=== PATIENT | male | born 1940 | race Caucasian/White ===

== ENCOUNTER 2018-01-27 19:41 | Inpatient (IN) | payer MEDICARE ==
[2018-01-27 20:24] LABS: #Basophils 0.1 thou/uL (0.0-0.2); #Eosinphils 0.3 thou/uL (0.0-0.7); #Monocytes 1.3 thou/uL (0.11-0.59); #Neutrophils 5.6 thou/uL (1.40-6.50); %Basophils 0.8 % (0.0-1.0); %Eosinophils 3.1 % (0.0-10.0); %Lymphocytes 21.5 % (21.0-51.0); %Monocytes 13.5 % (0.0-10.0); %Neutrophils 61.1 % (42.0-75.0); Hemoglobin 13.2 g/dL (14.0-18.0); Mean Corpuscular Hemoglobin 30.9 pg (27.0-31.0); Mean Corpuscular Volume 90.9 fL (78.0-98.0); Mean Platelet Volume 6.6 fL (7.4-10.4); Platelet Count 214 thou/uL (130-400); RBC Distribution Width 12.9 % (11.5-14.5); Red Blood Cell (RBC) Count 4.26 mill/uL (4.70-6.10); White Blood Cell (WBC) Count 9.2 thou/uL (4.8-10.8)
[2018-01-27 20:43] LABS: ALT (SGPT) 17 U/L (8-55); AST (SGOT) 15 U/L (5-34); Albumin 3.3 g/dL (3.4-4.8); Alkaline Phosphatase 91 U/L (40-150); Anion Gap 9 mmol/L (10-20); BUN (Urea Nitrogen) 31 mg/dL (8.4-25.7); Bilirubin, Total 0.4 mg/dL (0.2-1.2); CK (CPK) 35 U/L (30-200); Calc. Creatinine Clearance 0 mL/min (70-130); Calcium 8.4 mg/dL (7.8-10.44); Carbon Dioxide 25 mmol/L (23-31); Chloride 107 mmol/L (98-107); Estimated GFR-MDRD 47; Glucose 110 mg/dL (83-110); Potassium 4.5 mmol/L (3.5-5.1); Protein, Total 6.3 g/dL (5.8-8.1); Sodium 136 mmol/L (136-145)
[2018-01-27 20:52] LABS: CKMB 1.5 ng/mL (0-6.6); Troponin I 0.044 ng/mL (< 0.028)
--- NOTE | 2018-01-27 20:54 | RAD ---
AP VIEW OF THE CHEST: 01/27/18 INDICATION: History of bilateral lower extremity weakness. COMPARISON: Prior exam dated 12/11/17. IMPRESSION: There is stable cardiomegaly and post CABG change. No acute abnormality is evident when compared to t he prior. POS: [facility]
[2018-01-27 22:53] LABS: Bilirubin Negative (Negative); Blood, Urine Negative (Negative); Clarity CLEAR (Clear); Glucose, Urine (Dipstick) Negative (Negative); Leukocyte Negative (Negative); Nitrite Negative (Negative); Protein, Urine (Dipstick) Negative (Neg-Trace); Specific Gravity, Urine 1.019 (1.002-1.036); Urobilinogen 0.2 mg/dL (0.2-1.0); pH, Urine 5.5 (5.0-9.0)
[2018-01-27 23:41] LABS: Troponin I 0.047 ng/mL (< 0.028)
[2018-01-27] MEDS ORDERED: Furosemide 40 MG/4 ML VIAL ONE (23:54)
[2018-01-28 02:41] LABS: Troponin I 0.074 ng/mL (< 0.028)
[2018-01-28] MEDS ORDERED: Ondansetron ODT 4 MG TAB SL PRN (02:48)
[2018-01-28] MEDS ORDERED: Ondansetron HCl/PF 4 MG/2 ML Vial IVP PRN ×2 (02:48→07:26)
[2018-01-28] MEDS ORDERED: Acetaminophen 325 MG TAB PO PRN ×2 (02:48→07:26)
[2018-01-28 03:20] VITALS: BMI 20.1
[2018-01-28] MEDS ORDERED: Mag-Al 1200 mg/1200 mg/30 ML UDCUP PO PRN (07:26)
[2018-01-28] MEDS ORDERED: Nitroglycerin 0.4 MG TAB (25 Tab Bottle) SL PRN (07:26)
[2018-01-28] MEDS ORDERED: Ondansetron ODT 4 MG TAB PO PRN (07:26)
[2018-01-28] MEDS ORDERED: Chloraseptic Spray 180 ml Bottle PO PRN (07:26)
[2018-01-28] MEDS ORDERED: Diabetic Tussin 200 MG/10 ML UDCUP PO PRN (07:26)
[2018-01-28] MEDS ORDERED: Loperamide HCl 2 MG CAP PO PRN (07:26)
[2018-01-28] MEDS ORDERED: Milk Of Magnesia 30 ML UDCUP PO PRN (07:26)
[2018-01-28] MEDS ORDERED: Senokot 8.6 MG TAB PO PRN (07:26)
[2018-01-28] MEDS ORDERED: hydrALAZINE 20 MG/ML VIAL SLOW IVP PRN (07:26)
[2018-01-28] MEDS ORDERED: Loratadine 10 MG TAB PO PRN (07:26)
[2018-01-28] MEDS ORDERED: Artificial Tears 18 DROP/0.9 ML EA EYE PRN (07:26)
[2018-01-28] MEDS ORDERED: Sodium Chloride 0.65% Nasal 44 ML BOT EA NARE PRN (07:26)
[2018-01-28] MEDS ORDERED: Zolpidem Tartrate 5 MG TAB PO PRN (07:26)
[2018-01-28] MEDS ORDERED: Eucerin (Mineral Oil/Petrolatum,White) 30 gm Jar TOP PRN (07:26)
[2018-01-28] MEDS ORDERED: Famotidine 20 MG TAB PO SCH (09:00)
[2018-01-28] MEDS ORDERED: Aspirin 325 MG TAB PO SCH (09:00)
[2018-01-28] MEDS: HYDROcodone/Acetaminophen 5/325 mg Tablet PO PRN ×3 (09:19→21:58)
[2018-01-28] MEDS: Enoxaparin Sodium 40 MG/0.4 ML SYRINGE SC SCH (09:22)
[2018-01-28] MEDS ORDERED: tiZANidine HCl 4 MG TAB PO PRN (13:42)
--- NOTE | 2018-01-28 13:58 | HP ---
PRIMARY CARE PHYSICIAN: Dr. Carter Salgado. REASON FOR ADMISSION: CHF, elevated troponin, acute generalized weakness. HISTORY OF PRESENT ILLNESS: A 77-year-old male who lives at assisted living department at [facility]. This morning, he was not able to stand up, he was feeling acutely weak. He was feeling exha usted and fatigued. He was not having any particular weakness on one or other side, but he was not a ble to hold himself. He was feeling so tired. He was not having any chest pain or shortness of cherie th, but he noticed that his lower extremity edema was getting worse. Patient was so weak at assisted living facility that it required wheelchair to transfer and subsequently he was brought to the emerg ency room for evaluation. He denies any fever. He denies any viral infection. He denies any constipation, diarrhea, melena, h ematochezia. He denies any abdominal pain. He denies any headache, palpitations, syncope. He denie s any trauma. In emergency room, patient was found with elevated troponin, elevated BNP and he has chronic kidney d isease stage 3. In the emergency room, he was treated with aspirin, Lasix, and subsequently he was a dmitted to telemetry floor. PAST MEDICAL HISTORY: Hypertension, dyslipidemia, benign enlargement of prostate, sleep apnea, gastr oesophageal reflux disease, history of pneumonia 2 weeks ago, chronic low back pain. PAST SURGICAL HISTORY: Prostate surgery, bilateral cataract surgery, CABG with heart valve replaceme nt, appendicectomy. PAST PSYCHIATRIC HISTORY: Anxiety and depression. SOCIAL HISTORY: Patient is originally from [place]. He is in our town for last few months. 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 He also is a former smoker. He quit smoking more than 10 yea rs ago. Currently, he lives at [facility] of [facility]. FAMILY HISTORY: No strong family history of premature coronary artery disease, stroke or cancer. ALLERGIES: No known drug allergy. CURRENT HOME MEDICATIONS: Aspirin 81 mg daily, Lipitor 80 mg p.o. at bedtime, calcium carbonate 500 mg p.o. b.i.d., Plavix 75 mg p.o. daily, Proscar 5 mg p.o. daily, gabapentin 300 mg twice daily and 6 00 mg p.o. at bedtime, metoprolol 25 mg p.o. b.i.d., Irvona 5 one tablet q.8 hourly p.r.n., MiraLax 17 grams p.o. daily, Protonix 20 mg p.o. daily, senna one tablet twice daily, Flomax 0.4 mg p.o. at bed time, tramadol 50 mg q.12 hours p.r.n., Zanaflex 4 mg q.8 hourly p.r.n. and Zoloft 25 mg p.o. daily. EMERGENCY ROOM COURSE: Patient is given aspirin and Lasix. REVIEW OF SYSTEMS: The following complete review of systems was negative, unless otherwise mentioned in the HPI or below: Constitutional: Weight loss or gain, ability to conduct usual activities. Skin: Rash, itching. Eyes: Double vision, pain. ENT/Mouth: Nose bleeding, neck stiffness, pain, tenderness. Cardiovascular: Palpitations, dyspnea on exertion, orthopnea. Respiratory: Shortness of breath, wheezing, cough, hemoptysis, fever or night sweats. Gastrointestinal: Poor appetite, abdominal pain, heartburn, nausea, vomiting, constipation, or diarr hea. Genitourinary: Urgency, frequency, dysuria, nocturia. Musculoskeletal: Pain, swelling. Neurologic/Psychiatric: Anxiety, depression. Allergy/Immunologic: Skin rash, bleeding tendency. Please see my HPI for pertinent positive and negative. All other review of systems reviewed and nega tive except as mentioned in the HPI. PHYSICAL EXAMINATION: VITAL SIGNS: Currently, blood pressure 130/52, pulse 59, respiratory rate 15, temperature 98.3, satu ration 95% on room air and weight 82.6 kilograms. GENERAL: Patient is currently alert, awake, no obvious acute distress. HEAD: Normocephalic, atraumatic. EYES: Pupils round, reactive to light. Extraocular muscle intact. ENT: Oropharynx within normal limits. Moist mucous membrane, no oral lesion, no pharyngeal erythema , no exudate. NECK: Supple, no JVD, no thyromegaly, no carotid bruit, no jugular venous distention. LUNGS: Clear to auscultation without any rhonchi or rales. CARDIAC: S1 and S2 appears regular, soft systolic murmur noted, no gallop, no rub. ABDOMEN: Soft, bowel sounds present, nontender, nondistended. No organomegaly, no mass, no suprapub ic tenderness. BACK: Examination unremarkable, no CVA tenderness. EXTREMITIES: Upper extremity passive movements of all joints are normal. Lower extremity; bilateral +2 pitting edema noted. No calf tenderness. Good distal pulsation. SKIN: No skin rash other than mild erythema noted in both lower extremities without any tenderness. NEUROLOGIC: Nonfocal examination. The patient is alert and oriented x3. Cranial nerves II-XII inta ct. Motor 5/5 in all four limbs. Sensation symmetrical. No cerebellar sign. PSYCHIATRIC: Normal affect. IMAGING DATA AND SIGNIFICANT LABORATORY DATA: 1. EKG showing normal sinus rhythm, right atrial enlargement, nonspecific ST-T changes. 2. Chest x-ray based on my review, cardiomegaly, slight left pleural effusion. 3. CBC: WBC 9.2, hemoglobin 13.2, platelet 214. 4. BMP: Sodium 136, potassium 4.5, BUN 31, creatinine 1.45, glucose 110, calcium 8.4, and lactic ac id 1.3. 5. LFT: AST 15, ALT 17, alkaline phosphatase 91, albumin 3.3, CK 35, CK-MB 1.5, troponin 0.044, BNP 428.3. Urinalysis normal. ASSESSMENT AND PLAN/IMPRESSION: 1. Acute generalized weakness; differential diagnosis, acute coronary syndrome/congestive heart fail ure/rule out infection. 2. Acute mild congestive heart failure exacerbation. Patient will be given Lasix 20 mg IV b.i.d. W e will monitor labs. Cardiac rehabilitation will be consulted. After verification of his home medic nicole, we will continue metoprolol tartrate 25 mg p.o. b.i.d. 3. Dyslipidemia. Check lipid profile tomorrow and continue Lipitor 80 mg p.o. at bedtime. 4. Coronary artery disease. Continue aspirin, Plavix, statin therapy and beta-moira therapy as pe r home dosage. 5. Chronic low back pain. Continue gabapentin, Zanaflex as per home dosage, Irvona on p.r.n. basis f or pain. 6. Gastroesophageal reflux disease. Continue Protonix 40 mg p.o. daily. 7. Benign enlargement of prostate. Continue Flomax and Proscar as per home dosage. 8. Anxiety and depression. Continue Zoloft 25 mg p.o. daily. 9. Deep venous thrombosis prophylaxis, Lovenox 40 mg subcu daily. 10. Gastrointestinal prophylaxis, Protonix 40 mg p.o. daily. CODE STATUS: The patient is FULL CODE. Patient's daughter is surrogate decision maker. Disposition plan based on clinical course. He will need PT, OT evaluation and [facility]. Disposition plan based on clinical course. We are expecting patien t's stay in hospital more than 2 midnights. Plan of care discussed with the patient. During this ad mission, we will also obtain echocardiography for diagnosis of CHF as well. Plan of care discussed w ith the patient's daughter on phone and updated about plan of care.
[2018-01-28] MEDS: Furosemide 20 MG/2 ML VIAL SLOW IVP SCH (14:54)
[2018-01-28] MEDS: Gabapentin 300 MG CAP PO SCH ×2 (16:26→21:59)
--- NOTE | 2018-01-28 20:42 | RAD ---
FRONTAL RADIOGRAPH CHEST 01/28/18 COMPARISON: 01/27/18. HISTORY: Cough. FINDINGS: Stable midline sternotomy wires and mediastinal clips. Stable interstitial prominence and pulmonary h yperinflation. No pneumothorax, pleural fluid, focal consolidation, or alveolar edema. IMPRESSION: No acute findings. POS: [facility]
[2018-01-28] MEDS: Senokot S 8.6-50 MG TAB PO SCH (21:56)
[2018-01-28] MEDS: Atorvastatin Calcium 40 MG TAB PO SCH (21:57)
[2018-01-28] MEDS: Metoprolol Tartrate 25 MG TAB PO SCH (21:58)
[2018-01-29] MEDS: HYDROcodone/Acetaminophen 5/325 mg Tablet PO PRN ×2 (05:26→18:44)
[2018-01-29] MEDS: Furosemide 20 MG/2 ML VIAL SLOW IVP SCH ×2 (05:27→16:13)
[2018-01-29 05:47] LABS: ALT (SGPT) 21 U/L (8-55); AST (SGOT) 17 U/L (5-34); Albumin 3.5 g/dL (3.4-4.8); Alkaline Phosphatase 97 U/L (40-150); Anion Gap 13 mmol/L (10-20); BUN (Urea Nitrogen) 29 mg/dL (8.4-25.7); Bilirubin, Total 0.5 mg/dL (0.2-1.2); Calc. Creatinine Clearance 46 mL/min (70-130); Calcium 9.1 mg/dL (7.8-10.44); Carbon Dioxide 24 mmol/L (23-31); Cardiac Risk 4.5 (Less than 4.5); Chloride 108 mmol/L (98-107); Cholesterol 148 mg/dl (< 200 Desired); Estimated GFR-MDRD 43; Globulin 3.4 g/dL (2.4-3.5); Glucose 82 mg/dL (83-110); HDL Cholesterol 33 mg/dL (>60 Neg Risk); LDL Cholesterol, Calculated 90 mg/dL; Potassium 4.3 mmol/L (3.5-5.1); Protein, Total 6.9 g/dL (5.8-8.1); Sodium 141 mmol/L (136-145); Triglycerides 127 mg/dL (Less than 150); Uric Acid 6.6 mg/dL (3.5-7.2)
[2018-01-29 06:05] LABS: Band 4 % (5-11); Eosinophils 5 % (0-10); Hemoglobin 14.3 g/dL (14.0-18.0); Lymphocytes 39 % (21-51); MDiff Complete? YES; Mean Corpuscular HGB CONC 33.4 g/dL (32.0-36.0); Mean Corpuscular Hemoglobin 30.8 pg (27.0-31.0); Mean Corpuscular Volume 92.4 fL (78.0-98.0); Mean Platelet Volume 7.1 fL (7.4-10.4); Monocytes 15 % (0-10); Neutrophil 36 % (42-75); PLT Morphology Comment Appears Adequate; Platelet Count 226 thou/uL (130-400); RBC Distribution Width 13.1 % (11.5-14.5); Red Blood Cell (RBC) Count 4.65 mill/uL (4.70-6.10); White Blood Cell (WBC) Count 8.2 thou/uL (4.8-10.8)
[2018-01-29] MEDS: Gabapentin 300 MG CAP PO SCH ×4 (09:37→21:48)
[2018-01-29] MEDS: Clopidogrel Bisulfate 75 MG TAB PO SCH (09:37)
[2018-01-29] MEDS: Tamsulosin HCl 0.4 MG CAP PO SCH (09:37)
[2018-01-29] MEDS: Finasteride 5 MG TAB PO SCH (09:37)
[2018-01-29] MEDS: Senokot S 8.6-50 MG TAB PO SCH ×2 (09:37→21:48)
[2018-01-29] MEDS: Metoprolol Tartrate 25 MG TAB PO SCH ×2 (09:37→21:48)
[2018-01-29] MEDS: Polyethylene Glycol 3350 17 GM Packet PO SCH (09:38)
[2018-01-29] MEDS: Enoxaparin Sodium 40 MG/0.4 ML SYRINGE SC SCH (09:39)
--- NOTE | 2018-01-29 11:41 | PDOC.PN ---
- Subjective Encounter Start Date: 01/29/18 Encounter Start Time: 07:40 -: old records requested/rev Patient seen and examined. No new complaints. No overnight events - Objective Resuscitation Status: Resuscitation Status FULL:Full Resuscitation MAR Reviewed: Yes Vital Signs & Weight: Vital Signs (12 hours) Temp Pulse Resp BP Pulse Ox 01/29/18 08:00 98.0 F 57 L 18 01/29/18 07:49 98.0 F 57 L 18 168/76 H 97 01/29/18 03:35 97.3 F L 56 L 20 170/72 H 97 01/28/18 23:56 97.5 F L 58 L 22 H 147/76 H 93 L Weight Weight 175 lb 14.4 oz I&O: 01/28/18 01/29/18 01/30/18 06:59 06:59 06:59 Intake Total 2168 Output Total 000 040 5947 Balance -200 8833 -1175 Result Diagrams: 01/29/18 05:07 01/29/18 05:07 EKG Reviewed by me: Yes (nsr) Phys Exam - Physical Examination Constitutional: NAD HEENT: PERRLA, moist MMs, sclera anicteric Neck: no JVD, supple Respiratory: no wheezing, no rales, no rhonchi Cardiovascular: RRR, no significant murmur, no rub Gastrointestinal: soft, non-tender, no distention, positive bowel sounds Musculoskeletal: no edema, pulses present Neurological: non-focal, normal sensation, moves all 4 limbs Psychiatric: normal affect Skin: no rash, normal turgor Dx/Plan (1) CHF exacerbation Code(s): I50.9 - HEART FAILURE, UNSPECIFIED Status: Acute Qualifiers: Heart failure type: diastolic Qualified Code(s): I50.33 - Acute on chronic diastolic (congestive) heart failure (2) Elevated troponin Code(s): R74.8 - ABNORMAL LEVELS OF OTHER SERUM ENZYMES Status: Acute (3) Weakness generalized Code(s): R53.1 - WEAKNESS Status: Acute (4) Anxiety and depression Code(s): F41.9 - ANXIETY DISORDER, UNSPECIFIED; F32.9 - MAJOR DEPRESSIVE DISORDER, SINGLE EPISODE, UNSPECIFIED Status: Chronic (5) BPH (benign prostatic hyperplasia) Code(s): N40.0 - BENIGN PROSTATIC HYPERPLASIA WITHOUT LOWER URINRY TRACT SYMP Status: Chronic (6) CAD (coronary artery disease) Code(s): I25.10 - ATHSCL HEART DISEASE OF [place] CORONARY ARTERY W/O ANG PCTRS Status: Chronic (7) CKD (chronic kidney disease) stage 3, GFR 30-59 ml/min Code(s): N18.3 - CHRONIC KIDNEY DISEASE, STAGE 3 (MODERATE) Status: Chronic (8) Chronic low back pain Code(s): M54.5 - LOW BACK PAIN; G89.29 - OTHER CHRONIC PAIN Status: Chronic (9) GERD (gastroesophageal reflux disease) Code(s): K21.9 - GASTRO-ESOPHAGEAL REFLUX DISEASE WITHOUT ESOPHAGITIS Status: Chronic - Plan cont current plan of care, PT/OT, social insurance analyst * he will need snu placement based on his condition * PT/OT * business case analyst consulted * monitor labs * tomorrow will change lasix po * medication reviewed as below * symptomatic treatment. Review of Systems - Review of Systems Constitutional: negative: fever, chills, sweats, weakness, malaise, other Eyes: negative: Pain, Vision Change, Conjunctivae Inflammation, Eyelid Inflammation, Redness, Other ENT: negative: Ear Pain, Ear Discharge, Nose Pain, Nose Discharge, Nose Congestion, Mouth Pain, Mouth Swelling, Throat Pain, Throat Swelling, Other Respiratory: negative: Cough, Dry, Shortness of Breath, Hemoptysis, SOB with Excertion, Pleuritic Pain, Sputum, Wheezing Cardiovascular: negative: chest pain, palpitations, orthopnea, paroxysmal nocturnal dyspnea, edema, light headedness, other Gastrointestinal: negative: Nausea, Vomiting, Abdominal Pain, Diarrhea, Constipation, Melena, Hematochezia, Other Genitourinary: negative: Dysuria, Frequency, Incontinence, Hematuria, Retention , Other Musculoskeletal: Back Pain. negative: Neck Pain, Shoulder Pain, Arm Pain, Hand Pain, Leg Pain, Foot Pain, Other - Medications/Allergies Allergies/Adverse Reactions: Allergies Allergy/AdvReac Type Severity Reaction Status Date / Time No Known Drug Allergies Allergy Verified 01/28/18 04:30 Medications: Current Medications Acetaminophen (Tylenol) 650 mg PO Q4H PRN PRN Reason: Headache/Fever or Pain Hydrocodone Bitart/Acetaminophen ([place] 5/325) 1 tab PO Q4H PRN PRN Reason: Moderate Pain (4-6) Last Admin: 01/29/18 05:26 Dose: 1 tab Al Hydroxide/Mg Hydroxide (Maalox) 30 ml PO Q6H PRN PRN Reason: Heartburn or Indigestion Artificial Tears (Tears Naturale) 0 drop EA EYE PRN PRN PRN Reason: Dry Eyes Aspirin (Aspirin Chewable) 81 mg PO DAILY [facility] Last Admin: 01/29/18 09:37 Dose: 81 mg Atorvastatin Calcium (Lipitor) 80 mg PO HS [facility] Last Admin: 01/28/18 21:57 Dose: 80 mg Clopidogrel Bisulfate (Plavix) 75 mg PO DAILY [facility] Last Admin: 01/29/18 09:37 Dose: 75 mg Enoxaparin Sodium (Lovenox) 40 mg SC 0900 [facility] Last Admin: 01/29/18 09:39 Dose: 40 mg Finasteride (Proscar) 5 mg PO DAILY [facility] Last Admin: 01/29/18 09:37 Dose: 5 mg Furosemide (Lasix) 20 mg SLOW IVP 0600,1400 [facility] Last Admin: 01/29/18 05:27 Dose: 20 mg Gabapentin (Neurontin) 300 mg PO 0900,1300,1700 [facility] Last Admin: 01/29/18 09:37 Dose: 300 mg Gabapentin (Neurontin) 600 mg PO HS [facility] Last Admin: 01/28/18 21:59 Dose: 600 mg Guaifenesin (Robitussin Sf) 200 mg PO Q4H PRN PRN Reason: Cough Hydralazine HCl (Apresoline) 10 mg SLOW IVP Q4H PRN PRN Reason: Systolic BP > 180 Loperamide HCl (Imodium) 2 mg PO PRN PRN PRN Reason: Diarrhea/Loose Stools Loratadine (Claritin) 10 mg PO DAILYPRN PRN PRN Reason: Sinus Symptoms Magnesium Hydroxide (Milk Of Magnesium) 30 ml PO DAILYPRN PRN PRN Reason: Constipation Metoprolol Tartrate (Lopressor) 25 mg PO BID [facility] Last Admin: 01/29/18 09:37 Dose: 25 mg Mineral Oil/White Petrolatum (Eucerin Cream) 0 gm TOP BIDPRN PRN PRN Reason: Dry Skin Nitroglycerin (Nitrostat) 0.4 mg SL Q5MIN PRN PRN Reason: Chest Pain Ondansetron HCl (Zofran Odt) 4 mg PO Q6H PRN PRN Reason: Nausea/Vomiting Ondansetron HCl (Zofran) 4 mg IVP Q6H PRN PRN Reason: Nausea/Vomiting Pantoprazole Sodium (Protonix) 40 mg PO DAILY [facility] Last Admin: 01/29/18 09:37 Dose: 40 mg Phenol (Chloraseptic [place] 180 Ml Bot) 0 ml PO PRN PRN PRN Reason: Sore Throat Polyethylene Glycol (Miralax) 17 gm PO DAILY [facility] Last Admin: 01/29/18 09:38 Dose: Not Given Senna (Senokot) 2 tab PO HSPRN PRN PRN Reason: Constipation Senna/Docusate Sodium (Senokot S) 1 tab PO BID [facility] Last Admin: 01/29/18 09:37 Dose: Not Given Sertraline HCl (Zoloft) 25 mg PO DAILY [facility] Last Admin: 01/29/18 09:37 Dose: 25 mg Sodium Chloride ([place] Nasal [place] 0.65%) 0 ml EA NARE QIDPRN PRN PRN Reason: Nasal Congestion Sodium Chloride (Flush - Normal Saline) 10 ml IVF Q12HR [facility] Last Admin: 01/28/18 21:59 Dose: 10 ml Sodium Chloride (Flush - Normal Saline) 10 ml IVF PRN PRN PRN Reason: Saline Flush Tamsulosin HCl (Flomax) 0.4 mg PO DAILY [facility] Last Admin: 01/29/18 09:37 Dose: 0.4 mg Tizanidine HCl (Zanaflex) 4 mg PO BID PRN PRN Reason: back pain Zolpidem Tartrate (Ambien) 5 mg PO HSPRN PRN PRN Reason: Insomnia
--- NOTE | 2018-01-29 13:19 | PQF ---
CLINICAL DOCUMENTATION IMPROVEMENT CLARIFICATION FORM: ICD-10 Updated PLEASE DO AN ADDENDUM TO THE PROGRESS NOTE WITH ANY DOCUMENTATION UPDATES OR ADDITIONS AND CARRY THROUGH TO DC SUMMARY. THANK YOU. DATE: 01/29 ATTN: DR. MARIEL REYEZ Please exercise your independent, professional judgment in responding to the clarification form. Clinical indicators are provided on the bottom of this form for your review. Please check appropriate box(s): [ X ] Demand Ischemia [ ] Insignificant lab value [ ] Other diagnosis [ ] Unable to determine For continuity of documentation, please document condition throughout progress notes and discharge summary. Thank You. CLINICAL INDICATORS - SIGNS / SYMPTOMS/ LABS are present in the medical record: SERIAL TROP I: 0.044, 0.047, 0.074 (01/27-) ER MD DOCUMENTATION 01/27: "NON-ISCHEMIC EKG W/O ACUTE FINDINGS, BUT ELEVATED TROPONINS. SUSPECT DEMAND ISCHEMIA BUT WILL REQUIRE TRENDING OF TROPS" PHYSICIAN H&P DOCUMENTATION 01/27: REASON FOR ADMISSION: CHF, ELEVATED TROPONIN. HX OF PRESENT ILLNESS: ..."IN THE ER PT WAS FOUND TO HAVE ELEVATED TROPONIN, ELEVATED BNP" PN 01/29: DX/PLAN: 1) ACUTE ON CHRONIC DIASTOLIC CHF; 2) ACUTE ELEVATED TROPONIN RISK FACTORS: ACUTE ON CHRONIC DIASTOLIC CHF HX CAD S/P CABG HTN CKD 3 TREATMENT: SERIAL CARDIAC ENZYMES X3 (01/27-) IV LASIX (01/27 - PRESENT) ECHO (RESULTS PENDING) THANK YOU! Melvi (This form is maintained as a part of the permanent medical record) 2014 [employer]. All Rights Reserved Melvi Muniz RN, BSN [email or web address] Office: [phone] [facility]
[2018-01-29] MEDS: Atorvastatin Calcium 40 MG TAB PO SCH (21:49)
[2018-01-30] MEDS: HYDROcodone/Acetaminophen 5/325 mg Tablet PO PRN ×2 (03:01→09:59)
[2018-01-30] MEDS: Furosemide 20 MG/2 ML VIAL SLOW IVP SCH (05:23)
[2018-01-30] MEDS: Enoxaparin Sodium 40 MG/0.4 ML SYRINGE SC SCH (09:55)
[2018-01-30] MEDS: Metoprolol Tartrate 25 MG TAB PO SCH (09:56)
[2018-01-30] MEDS: Polyethylene Glycol 3350 17 GM Packet PO SCH (09:56)
[2018-01-30] MEDS: Tamsulosin HCl 0.4 MG CAP PO SCH (09:56)
[2018-01-30] MEDS: Gabapentin 300 MG CAP PO SCH (09:56)
[2018-01-30] MEDS: Finasteride 5 MG TAB PO SCH (09:56)
[2018-01-30] MEDS: Clopidogrel Bisulfate 75 MG TAB PO SCH (09:56)
[2018-01-30] MEDS: Senokot S 8.6-50 MG TAB PO SCH (09:56)
--- NOTE | 2018-01-30 09:59 | PDOC.PN ---
- Subjective Encounter Start Date: 01/30/18 Encounter Start Time: 07:40 Patient seen and examined. No new complaints. No overnight events - Objective Resuscitation Status: Resuscitation Status FULL:Full Resuscitation MAR Reviewed: Yes Vital Signs & Weight: Vital Signs (12 hours) Temp Pulse Resp BP Pulse Ox 01/30/18 08:16 97.9 F 61 16 93 L 01/30/18 07:57 97.9 F 61 16 149/79 H 93 L 01/30/18 04:00 97.5 F L 57 L 157/68 H 01/30/18 00:00 98.0 F 61 18 145/63 H 94 L Weight Weight 173 lb 8 oz I&O: 01/29/18 01/30/18 01/31/18 06:59 06:59 06:59 Intake Total 2168 198 Output Total 325 2250 Balance 1843 -2051 Result Diagrams: 01/29/18 05:07 01/29/18 05:07 EKG Reviewed by me: Yes (nsr) Phys Exam - Physical Examination Constitutional: NAD HEENT: PERRLA, moist MMs, sclera anicteric Neck: no JVD, supple Respiratory: no wheezing, no rales, no rhonchi Cardiovascular: RRR, no rub parasternal murmur Gastrointestinal: soft, non-tender, no distention, positive bowel sounds Musculoskeletal: no edema, pulses present Neurological: non-focal, normal sensation, moves all 4 limbs Lymphatic: no nodes Psychiatric: normal affect, A&O x 3 Skin: no rash, normal turgor Dx/Plan (1) CHF exacerbation Code(s): I50.9 - HEART FAILURE, UNSPECIFIED Status: Acute Qualifiers: Heart failure type: diastolic Qualified Code(s): I50.33 - Acute on chronic diastolic (congestive) heart failure (2) Elevated troponin Code(s): R74.8 - ABNORMAL LEVELS OF OTHER SERUM ENZYMES Status: Acute (3) Weakness generalized Code(s): R53.1 - WEAKNESS Status: Acute (4) Anxiety and depression Code(s): F41.9 - ANXIETY DISORDER, UNSPECIFIED; F32.9 - MAJOR DEPRESSIVE DISORDER, SINGLE EPISODE, UNSPECIFIED Status: Chronic (5) BPH (benign prostatic hyperplasia) Code(s): N40.0 - BENIGN PROSTATIC HYPERPLASIA WITHOUT LOWER URINRY TRACT SYMP Status: Chronic (6) CAD (coronary artery disease) Code(s): I25.10 - ATHSCL HEART DISEASE OF [place] CORONARY ARTERY W/O ANG PCTRS Status: Chronic (7) CKD (chronic kidney disease) stage 3, GFR 30-59 ml/min Code(s): N18.3 - CHRONIC KIDNEY DISEASE, STAGE 3 (MODERATE) Status: Chronic (8) Chronic low back pain Code(s): M54.5 - LOW BACK PAIN; G89.29 - OTHER CHRONIC PAIN Status: Chronic (9) GERD (gastroesophageal reflux disease) Code(s): K21.9 - GASTRO-ESOPHAGEAL REFLUX DISEASE WITHOUT ESOPHAGITIS Status: Chronic - Plan cont current plan of care, PT/OT, social group worker * medication reviewed as below * symptomatic treatment * stable for discharge * await insurance approval for SNU transfer * continue PT * now euvolemic Review of Systems - Review of Systems Constitutional: negative: fever, chills, sweats, weakness, malaise, other Eyes: negative: Pain, Vision Change, Conjunctivae Inflammation, Eyelid Inflammation, Redness, Other ENT: negative: Ear Pain, Ear Discharge, Nose Pain, Nose Discharge, Nose Congestion, Mouth Pain, Mouth Swelling, Throat Pain, Throat Swelling, Other Respiratory: negative: Cough, Dry, Shortness of Breath, Hemoptysis, SOB with Excertion, Pleuritic Pain, Sputum, Wheezing Cardiovascular: negative: chest pain, palpitations, orthopnea, paroxysmal nocturnal dyspnea, edema, light headedness, other Gastrointestinal: negative: Nausea, Vomiting, Abdominal Pain, Diarrhea, Constipation, Melena, Hematochezia, Other Genitourinary: negative: Dysuria, Frequency, Incontinence, Hematuria, Retention , Other Musculoskeletal: Back Pain. negative: Neck Pain, Shoulder Pain, Arm Pain, Hand Pain, Leg Pain, Foot Pain, Other Skin: negative: Rash, Lesions, Chucky, Bruising, Other - Medications/Allergies Allergies/Adverse Reactions: Allergies Allergy/AdvReac Type Severity Reaction Status Date / Time No Known Drug Allergies Allergy Verified 01/28/18 04:30 Medications: Current Medications Acetaminophen (Tylenol) 650 mg PO Q4H PRN PRN Reason: Headache/Fever or Pain Hydrocodone Bitart/Acetaminophen ([place] 5/325) 1 tab PO Q4H PRN PRN Reason: Moderate Pain (4-6) Last Admin: 01/30/18 03:01 Dose: 1 tab Al Hydroxide/Mg Hydroxide (Maalox) 30 ml PO Q6H PRN PRN Reason: Heartburn or Indigestion Artificial Tears (Tears Naturale) 0 drop EA EYE PRN PRN PRN Reason: Dry Eyes Aspirin (Aspirin Chewable) 81 mg PO DAILY [facility] Last Admin: 01/30/18 09:56 Dose: 81 mg Atorvastatin Calcium (Lipitor) 80 mg PO HS [facility] Last Admin: 01/29/18 21:49 Dose: 80 mg Clopidogrel Bisulfate (Plavix) 75 mg PO DAILY [facility] Last Admin: 01/30/18 09:56 Dose: 75 mg Enoxaparin Sodium (Lovenox) 40 mg SC 0900 [facility] Last Admin: 01/30/18 09:55 Dose: 40 mg Finasteride (Proscar) 5 mg PO DAILY [facility] Last Admin: 01/30/18 09:56 Dose: 5 mg Furosemide (Lasix) 20 mg SLOW IVP 0600,1400 [facility] Last Admin: 01/30/18 05:23 Dose: 20 mg Gabapentin (Neurontin) 300 mg PO 0900,1300,1700 [facility] Last Admin: 01/30/18 09:56 Dose: 300 mg Gabapentin (Neurontin) 600 mg PO HS [facility] Last Admin: 01/29/18 21:48 Dose: 600 mg Guaifenesin (Robitussin Sf) 200 mg PO Q4H PRN PRN Reason: Cough Hydralazine HCl (Apresoline) 10 mg SLOW IVP Q4H PRN PRN Reason: Systolic BP > 180 Loperamide HCl (Imodium) 2 mg PO PRN PRN PRN Reason: Diarrhea/Loose Stools Loratadine (Claritin) 10 mg PO DAILYPRN PRN PRN Reason: Sinus Symptoms Magnesium Hydroxide (Milk Of Magnesium) 30 ml PO DAILYPRN PRN PRN Reason: Constipation Metoprolol Tartrate (Lopressor) 25 mg PO BID [facility] Last Admin: 01/30/18 09:56 Dose: 25 mg Mineral Oil/White Petrolatum (Eucerin Cream) 0 gm TOP BIDPRN PRN PRN Reason: Dry Skin Nitroglycerin (Nitrostat) 0.4 mg SL Q5MIN PRN PRN Reason: Chest Pain Ondansetron HCl (Zofran Odt) 4 mg PO Q6H PRN PRN Reason: Nausea/Vomiting Ondansetron HCl (Zofran) 4 mg IVP Q6H PRN PRN Reason: Nausea/Vomiting Pantoprazole Sodium (Protonix) 40 mg PO DAILY [facility] Last Admin: 01/30/18 09:56 Dose: 40 mg Phenol (Chloraseptic [place] 180 Ml Bot) 0 ml PO PRN PRN PRN Reason: Sore Throat Polyethylene Glycol (Miralax) 17 gm PO DAILY [facility] Last Admin: 01/30/18 09:56 Dose: 17 gm Senna (Senokot) 2 tab PO HSPRN PRN PRN Reason: Constipation Senna/Docusate Sodium (Senokot S) 1 tab PO BID [facility] Last Admin: 01/30/18 09:56 Dose: 1 tab Sertraline HCl (Zoloft) 25 mg PO DAILY [facility] Last Admin: 01/30/18 09:56 Dose: 25 mg Sodium Chloride ([place] Nasal [place] 0.65%) 0 ml EA NARE QIDPRN PRN PRN Reason: Nasal Congestion Sodium Chloride (Flush - Normal Saline) 10 ml IVF Q12HR [facility] Last Admin: 01/30/18 09:56 Dose: 10 ml Sodium Chloride (Flush - Normal Saline) 10 ml IVF PRN PRN PRN Reason: Saline Flush Tamsulosin HCl (Flomax) 0.4 mg PO DAILY [facility] Last Admin: 01/30/18 09:56 Dose: 0.4 mg Tizanidine HCl (Zanaflex) 4 mg PO BID PRN PRN Reason: back pain Zolpidem Tartrate (Ambien) 5 mg PO HSPRN PRN PRN Reason: Insomnia
[2018-01-30 11:25] VITALS: BP 135/67; TEMP 98.2
--- NOTE | 2018-01-30 13:11 | DIS ---
DATE OF ADMISSION: 01/27/2018 DATE OF DISCHARGE: 01/30/2018 PRIMARY CARE PHYSICIAN: Dr. Carter Salgado. DISCHARGE DISPOSITION: snf home. PRIMARY DISCHARGE DIAGNOSES: 1. Congestive heart failure exacerbation (diastolic). 2. Demand ischemia of myocardium. 3. Generalized weakness. SECONDARY DISCHARGE DIAGNOSES: Chronic low back pain, coronary artery disease, benign enlargement of prostate, anxiety and depression, gastroesophageal reflux disease, chronic kidney disease stage 3, c hronic diastolic heart failure. PRIMARY PROCEDURE AND OPERATION: None. RADIOLOGICAL INVESTIGATION: Chest x-ray showed cardiomegaly. Echocardiography showed normal EF, LVH . SIGNIFICANT LABORATORY DATA: WBC 8.2, hemoglobin 14.3, platelet 226. Sodium 141, potassium 4.3, BUN 29, creatinine 1.57, calcium 9.1. LFT normal. Troponin 0.074, LDL 90. Urinalysis normal. Urine c ulture negative. DISCHARGE MEDICATIONS: Aspirin 81 mg p.o. daily, Lipitor 80 mg p.o. at bedtime, Tums 500 mg p.r.n., Plavix 75 mg p.o. daily, Proscar 5 mg p.o. daily, gabapentin 300 mg p.o. b.i.d. and 600 mg p.o. at be dtime, [place] 5 one tablet p.o. b.i.d., metoprolol tartrate 25 mg p.o. b.i.d., Protonix 20 mg p.o. matt ly, MiraLax 17 grams p.o. daily, Senna one tablet twice daily, Zoloft 25 mg p.o. daily, Flomax 0.4 mg p.o. at bedtime, Zanaflex 4 mg p.o. q.8 hourly p.r.n., tramadol 50 mg p.o. b.i.d. p.r.n. CONTRAINDICATIONS: None. CODE STATUS: FULL CODE. INPATIENT CONSULTANTS: None. ALLERGIES: No known drug allergy. DISCHARGE PLAN: Post hospital, the patient will follow up with primary care physician. HOSPITAL COURSE: A 77-year-old male who was sent from assisted living facility because he was having generalized weakness. He had elevated BNP. He was found with elevated troponin. We suspected CHF. The patient was treated with Lasix while in hospital. His troponin remained indeterminant range. He did not have any chest pain or any angina. We attributed to be due to demand ischemia. He was ad mitted in hospital. We did PT, OT. This patient has generalized weakness and that is why he require s placement and with the help of returned case inspector, we arranged care home home. The patient has approval for care home home today. Paper work for discharge done. Discharge m edication reconciliation done.
== END 2018-01-30 14:43 | DRG 291 ==
LOC: ERS 19:41 → 2SE 23:35
PROVIDERS: ADMIT Family Medicine; ATTEND Family Medicine
DX: I13.0 Hypertensive heart and chronic kidney disease with heart failure and stage 1 through stage 4 chronic kidney disease, or unspecified chronic kidney disease (principal); I50.33 Acute on chronic diastolic (congestive) heart failure; I24.8 Other forms of acute ischemic heart disease; N18.3 Chronic kidney disease, stage 3 (moderate); I25.10 Atherosclerotic heart disease of native coronary artery without angina pectoris; E78.5 Hyperlipidemia, unspecified; F41.8 Other specified anxiety disorders; Z87.891 Personal history of nicotine dependence; K21.9 Gastro-esophageal reflux disease without esophagitis; M54.5 Low back pain; G89.29 Other chronic pain; N40.0 Benign prostatic hyperplasia without lower urinary tract symptoms; Z79.02 Long term (current) use of antithrombotics/antiplatelets; Z79.82 Long term (current) use of aspirin; Z79.891 Long term (current) use of opiate analgesic
CPT/HCPCS: 36415; 71045; 80053; 80061; 81003; 82550; 82553; 83605; 83880; 84484; 84550; 85025; 87086; 93005; 93306; 93798; 96374; A4216; G8978-GP-CL; G8979-GP-CJ; G8987-GO-CL; G8988-GO-CK; J1650; J1940

== ENCOUNTER 2018-03-26 04:00 | Inpatient (IN) | payer MEDICARE ==
[2018-03-26 04:50] LABS: INR-International Normal Ratio 1.3; PTT 36.5 SEC (22.9-36.1); Prothrombin Time 15.8 SEC (12.0-14.7)
[2018-03-26 04:56] LABS: ALT (SGPT) 21 U/L (8-55); AST (SGOT) 17 U/L (5-34); Albumin 3.3 g/dL (3.4-4.8); Alkaline Phosphatase 86 U/L (40-150); Anion Gap 13 mmol/L (10-20); BUN (Urea Nitrogen) 29 mg/dL (8.4-25.7); Bilirubin, Total 1.2 mg/dL (0.2-1.2); CK (CPK) 67 U/L (30-200); Calc. Creatinine Clearance 0 mL/min (70-130); Calcium 7.8 mg/dL (7.8-10.44); Carbon Dioxide 18 mmol/L (23-31); Chloride 110 mmol/L (98-107); Estimated GFR-MDRD 43; Glucose 107 mg/dL (83-110); Potassium 3.7 mmol/L (3.5-5.1); Protein, Total 6.3 g/dL (5.8-8.1); Sodium 137 mmol/L (136-145)
[2018-03-26 05:01] LABS: CKMB 0.8 ng/mL (0-6.6); Troponin I 0.042 ng/mL (< 0.028)
[2018-03-26 05:11] LABS: Band 38 % (5-11); Hemoglobin 13.1 g/dL (14.0-18.0); Lymphocytes 5 % (21-51); MDiff Complete? YES; Mean Corpuscular Hemoglobin 30.9 pg (27.0-31.0); Mean Corpuscular Volume 90.7 fL (78.0-98.0); Monocytes 5 % (0-10); Neutrophil 52 % (42-75); PLT Morphology Comment Appears Adequate; Platelet Count 237 thou/uL (130-400); RBC Distribution Width 12.9 % (11.5-14.5); Red Blood Cell (RBC) Count 4.25 mill/uL (4.70-6.10); White Blood Cell (WBC) Count 32.7 thou/uL (4.8-10.8)
[2018-03-26 05:26] LABS: Bilirubin Negative (Negative); Blood, Urine Small (Negative); Clarity CLOUDY (Clear); Glucose, Urine (Dipstick) Negative (Negative); Leukocyte Large (Negative); Nitrite Positive (Negative); Protein, Urine (Dipstick) 30 mg/dL (Neg-Trace); Specific Gravity, Urine 1.025 (1.002-1.036); Urobilinogen 0.2 mg/dL (0.2-1.0); pH, Urine 5.5 (5.0-9.0)
[2018-03-26 05:28] LABS: Bacteria/HPF 4+ HPF (None Seen); Hyaline Casts/LPF 4-6 HYALINE CAST LPF (0-3 Hyaline); Pathc Cast-AUWi Flag 1.01 (0-2.49); Squamous Epithelial None Seen HPF (0-3)
[2018-03-26] MEDS ORDERED: Piperacillin/Tazobactam 4.5 GM VIAL ONE (05:38)
[2018-03-26 08:23] LABS: Troponin I 0.046 ng/mL (< 0.028)
[2018-03-26] MEDS ORDERED: Ondansetron ODT 4 MG TAB SL PRN (08:52)
[2018-03-26] MEDS ORDERED: Ondansetron HCl/PF 4 MG/2 ML Vial IVP PRN (08:52)
[2018-03-26] MEDS ORDERED: Acetaminophen 325 MG TAB PO PRN (08:52)
--- NOTE | 2018-03-26 09:37 | RAD ---
CHEST 1 VIEW: Date: 03/26/18 HISTORY: Dyspnea. Sepsis. COMPARISON: 01/28/18. FINDINGS: Cardiac silhouette is magnified and upper limits of normal in size. Pulmonary vasculature upper limit s of normal with widespread reticulonodular interstitial prominence. Mediastinum midline with postope rative changes. No lobar consolidation or evidence of pneumothorax. IMPRESSION: Borderline pulmonary vascular congestion. POS: [facility]
--- NOTE | 2018-03-26 12:24 | CT ---
PRELIMINARY REPORT/[facility]/EMERGENTY AFTER-HOURS PROCEDURE CT Head Without Intravenous Contrast CLINICAL HISTORY: 77 years old, male; Signs and symptoms; Fever; Patient HX: Patient presents for evaluation of fever TECHNIQUE: Axial computed tomography images of the head/brain without intravenous contrast. COMPARISON: No relevant prior studies available. FINDINGS: No definite acute skull fracture. Included paranasal sinuses are essentially clear. No acute intracranial hemorrhage or mass effect. Ventricle size is normal for age. There is decreased attenuation in the periventricular white matter, likely from microvascular disease . There are old lacunar infarcts in the basal ganglia regions bilaterally. Additional old infarcts in the right frontal and left posterior frontal/occipital regions. No definite acute infarct by CT. IMPRESSION: No acute intracranial bleed or mass effect. Changes of microvascular disease, and old infarcts, details above. Thank you for allowing us to participate in the care of your patient. Dictated and Authenticated by: Nickolas Ramos MD 03/26/2018 5:48 AM Central Time ([place] & [place]) FINAL REPORT HEAD CT WIHTOUT CONTRAST: COMPARISON: 04/19/08. History Slurred speech. Possible stroke. FINDINGS: This report is in agreement with the preliminary report by [facility]. No acute intracranial process. Ther e is evidence of chronic small-vessel ischemic change of the white matter. Remote insult involving t he left occipital parietal region is noted. Remote bilateral basal ganglion and lacunar infarcts are also identified. POS: [facility]
[2018-03-26] MEDS ORDERED: Calcium Carbonate 500 MG ChewTAB PO PRN (15:46)
[2018-03-26] MEDS ORDERED: Acetaminophen 650 MG Suppository PR PRN (15:46)
[2018-03-26] MEDS: Sodium Chloride 0.9% 1,000 ML IV SCH (17:28)
[2018-03-26] MEDS: Cefepime 1 GM in Sodium Chloride 0.9% 100 ML IVPB SCH (17:43)
[2018-03-26] MEDS: Tamsulosin HCl 0.4 MG CAP PO SCH (20:21)
[2018-03-26] MEDS: HYDROcodone/Acetaminophen 5/325 mg Tablet PO SCH (20:22)
[2018-03-26] MEDS: Gabapentin 300 MG CAP PO SCH (20:22)
[2018-03-26] MEDS: Atorvastatin Calcium 40 MG TAB PO SCH (20:23)
[2018-03-26] MEDS: Senokot 8.6 MG TAB PO SCH (20:23)
[2018-03-26] MEDS: Metoprolol Tartrate 25 MG TAB PO SCH (20:25)
[2018-03-26] MEDS ORDERED: Gabapentin 300 MG CAP PO SCH (21:00)
[2018-03-27] MEDS: Acetaminophen 325 MG TAB PO PRN ×2 (00:24→06:00)
[2018-03-27 05:38] LABS: Anion Gap 9 mmol/L (10-20); BUN (Urea Nitrogen) 31 mg/dL (8.4-25.7); Calc. Creatinine Clearance 51 mL/min (70-130); Carbon Dioxide 21 mmol/L (23-31); Chloride 113 mmol/L (98-107); Estimated GFR-MDRD 46; Glucose 96 mg/dL (83-110); Magnesium 1.6 mg/dL (1.6-2.6); Potassium 3.6 mmol/L (3.5-5.1); Sodium 139 mmol/L (136-145)
[2018-03-27 05:55] LABS: Band 4 % (5-11); Hemoglobin 11.8 g/dL (14.0-18.0); Hypochromia SLIGHT = 6-15 cells (100X) (0-5/hpf); Lymphocytes 3 % (21-51); MDiff Complete? YES; Mean Corpuscular HGB CONC 33.5 g/dL (32.0-36.0); Mean Corpuscular Hemoglobin 30.7 pg (27.0-31.0); Mean Corpuscular Volume 91.5 fL (78.0-98.0); Mean Platelet Volume 7.2 fL (7.4-10.4); Monocytes 3 % (0-10); Neutrophil 90 % (42-75); PLT Morphology Comment Appears Adequate; Platelet Count 188 thou/uL (130-400); Red Blood Cell (RBC) Count 3.84 mill/uL (4.70-6.10); White Blood Cell (WBC) Count 27.1 thou/uL (4.8-10.8)
[2018-03-27] MEDS: Cefepime 1 GM in Sodium Chloride 0.9% 100 ML IVPB SCH ×2 (05:58→17:51)
[2018-03-27] MEDS: Senokot 8.6 MG TAB PO SCH ×2 (09:54→21:09)
[2018-03-27] MEDS: Polyethylene Glycol 3350 17 GM Packet PO SCH (09:54)
[2018-03-27] MEDS: Clopidogrel Bisulfate 75 MG TAB PO SCH (09:54)
[2018-03-27] MEDS: HYDROcodone/Acetaminophen 5/325 mg Tablet PO SCH ×2 (09:55→21:07)
[2018-03-27] MEDS: Gabapentin 300 MG CAP PO SCH ×3 (09:55→21:07)
[2018-03-27] MEDS: Finasteride 5 MG TAB PO SCH (09:55)
[2018-03-27] MEDS: Metoprolol Tartrate 25 MG TAB PO SCH ×2 (09:57→21:08)
[2018-03-27] MEDS: Aspirin 81 mg Enteric Coated Tablet PO SCH (09:58)
--- NOTE | 2018-03-27 13:33 | PDOC.PN ---
- Subjective Encounter Start Date: 03/27/18 Encounter Start Time: 11:30 PT feels about the same, only complaint is chronic low back pain. No F/c, no N/V/D/C Tolo abx well without itching or rash All systems reviewed and neg x as as per HPI - Objective Resuscitation Status: Resuscitation Status FULL:Full Resuscitation MAR Reviewed: Yes Vital Signs & Weight: Vital Signs (12 hours) Temp Pulse Pulse Pulse Resp BP BP 03/27/18 12:00 97.6 F 65 16 03/27/18 09:08 66 67 117/58 L 129/61 03/27/18 09:05 117/58 L 129/61 03/27/18 08:00 97.9 F 60 16 03/27/18 04:20 98.4 F 65 16 BP Pulse Ox 03/27/18 12:00 130/61 95 03/27/18 09:08 03/27/18 09:05 03/27/18 08:00 116/58 L 93 L 03/27/18 04:20 125/58 L 98 Weight Weight 187 lb 14.4 oz I&O: 03/26/18 03/27/18 03/28/18 06:59 06:59 06:59 Intake Total 593 1350 Balance 593 1350 Result Diagrams: 03/27/18 04:57 03/27/18 04:57 Phys Exam - Physical Examination Constitutional: NAD HEENT: PERRLA, moist MMs, sclera anicteric, oral pharynx no lesions Neck: no nodes, no JVD, supple, full ROM Respiratory: no wheezing, no rales, no rhonchi, clear to auscultation bilateral Cardiovascular: RRR, no significant murmur, no rub Gastrointestinal: soft, non-tender, no distention, positive bowel sounds Musculoskeletal: edema present Neurological: non-focal, normal sensation, moves all 4 limbs Lymphatic: no nodes Psychiatric: normal affect, A&O x 3 Skin: no rash, normal turgor, cap refill <2 seconds Dx/Plan (1) UTI (urinary tract infection) Status: Acute Qualifiers: Urinary tract infection type: acute cystitis Hematuria presence: without hematuria Qualified Code(s): N30.00 - Acute cystitis without hematuria (2) Sepsis Code(s): A41.9 - SEPSIS, UNSPECIFIED ORGANISM Status: Acute (3) Chronic diastolic CHF (congestive heart failure) Code(s): I50.32 - CHRONIC DIASTOLIC (CONGESTIVE) HEART FAILURE Status: Chronic (4) BPH (benign prostatic hyperplasia) Code(s): N40.0 - BENIGN PROSTATIC HYPERPLASIA WITHOUT LOWER URINRY TRACT SYMP Status: Chronic Qualifiers: Lower urinary tract symptom presence: symptoms present Lower urinary tract symptom detail: incomplete bladder emptying Qualified Code(s): N40.1 - Benign prostatic hyperplasia with lower urinary tract symptoms; R39.14 - Feeling of incomplete bladder emptying (5) CAD (coronary artery disease) Code(s): I25.10 - ATHSCL HEART DISEASE OF [place] CORONARY ARTERY W/O ANG PCTRS Status: Chronic Qualifiers: Coronary Disease-Associated Artery/Lesion type: unspecified vessel or lesion type [place] vs. transplanted heart: [place] heart Associated angina: without angina Qualified Code(s): I25.10 - Atherosclerotic heart disease of [place] coronary artery without angina pectoris (6) CKD (chronic kidney disease) stage 3, GFR 30-59 ml/min Code(s): N18.3 - CHRONIC KIDNEY DISEASE, STAGE 3 (MODERATE) Status: Chronic (7) Chronic low back pain Code(s): M54.5 - LOW BACK PAIN; G89.29 - OTHER CHRONIC PAIN Status: Chronic Qualifiers: Back pain laterality: unspecified Sciatica presence: without sciatica Qualified Code(s): M54.5 - Low back pain; G89.29 - Other chronic pain (8) GERD (gastroesophageal reflux disease) Code(s): K21.9 - GASTRO-ESOPHAGEAL REFLUX DISEASE WITHOUT ESOPHAGITIS Status: Chronic Qualifiers: Esophagitis presence: without esophagitis Qualified Code(s): K21.9 - Gastro -esophageal reflux disease without esophagitis - Plan cont current plan of care, PT/OT, manager social work, out of bed/ambulate * . PT/OT recommended SNF placement, requested case management to look into, CCM with abx, anticipate D/C in 2 days. UCx with GNR, on cefepime for now. WBC down
--- NOTE | 2018-03-27 13:56 | HP ---
PRIMARY CARE PHYSICIAN: Dr. Carter Salgado DATE OF ADMISSION: 03/26/2018 TIME OF SERVICE: 1100. CHIEF COMPLAINT: Fever. HISTORY OF PRESENT ILLNESS: Mr. 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 He prese nted to the emergency department via EMS after being found at his assisted living facility with 102 f ever on EMS arrival. Mental status was possibly not at baseline, vitals were stable, he was transfer red to our emergency department for evaluation. He was found to have an abnormal urine, white count of 32.7, lactic acid was normal and creatinine wa s slightly increased from his baseline of 1.59. We were subsequently called for admission. The patient was accepted by the audit lead and held over for the day shift. Since that time has been feeling better. Daughter at the bedside says his mentation is currently at his baseline. He does h ave a history of BPH treated by urologist in [place] with a TURP 3-4 years ago x2. He subsequentl y denies anything other than back pain at present. No fevers or chills, no nausea and vomiting, no d iarrhea or constipation. Last echocardiogram here was in 01/2018 with EF of 60-65%, severe left atrial dilation, severe LVH co ncentric and diastolic congestive heart failure. He has been hospitalized now the fourth time since he has been here since August. PAST MEDICAL HISTORY: 1. Hypertension. 2. Congestive heart failure, chronic diastolic. 3. Gastroesophageal reflux disease. 4. Hyperlipidemia. 5. Obstructive sleep apnea. 6. Chronic low back pain. PAST SURGICAL HISTORY: 1. Includes a TURP x2 about 4 years ago. 2. Bilateral cataract surgery. 3. Aortic valve replacement. 4. Coronary artery bypass grafting x2 episodes, the total his daughter thinks was 6 vessels. 5. Appendectomy. HOME MEDICATIONS: 1. Aspirin 81 mg daily. 2. Atorvastatin 80 mg p.o. at bedtime. 3. Calcium carbonate 500 mg p.o. b.i.d. 4. Plavix 75 mg daily. 5. Finasteride 5 mg daily. 6. Gabapentin 300 mg p.o. q.a.m. every noon and 600 mg p.o. at bedtime. 7. Metoprolol tartrate 25 mg p.o. b.i.d. 8. [place] 5/325 as needed. 9. MiraLax 17 grams daily. 10. Protonix 20 mg daily. 11. Senna. 12. Tamsulosin 0.4 mg p.o. at bedtime. 13. Tramadol 50 mg p.o. b.i.d. p.r.n. 14. Zanaflex 4 mg p.o. q.8 hours p.r.n. 15. Zoloft 25 mg daily. ALLERGIES: NKDA. FAMILY HISTORY: Negative for clotting or bleeding disorder. No immune dysfunction. SOCIAL HISTORY: He does have a history of marijuana, but quit many years ago. [facility]. He did smoke tobacco, but quit greater than 10 years ago, smoked 1-2 packs a day for 30-40 years. Uses rare social alcohol. REVIEW OF SYSTEMS: All systems reviewed and negative except as stated as per HPI. PHYSICAL EXAMINATION: VITAL SIGNS: Temperature 97.3, pulse 89, blood pressure 112/52, respiratory rate 20, O2 stat 95% on room air. GENERAL: He is awake. He is alert. He is oriented x3. He is an elderly obese white male who appea rs in no acute distress. HEENT: Normocephalic, atraumatic. Pupils equal and reactive to light bilaterally. Mucous membranes moist. No lesion, no thrush. NECK: Supple. No lymphadenopathy, JVD, or thyromegaly. He has normal carotid upstroke. I do not a ppreciate a bruit. RESPIRATORY: Clear anteriorly, he has no wheeze, no rales, no rhonchi. No prolonged expiratory phas e. There are faint bibasilar crackles that seem clear with deep inspiration. CARDIOVASCULAR: Normal S1 and S2. He has no S3, S4. He has a holosystolic murmur at the left upper sternal border. No systolic ejection murmurs. ABDOMEN: Obese, it is nontender, nondistended with good bowel sounds. No rebound, rigidity or guard ing. EXTREMITIES: No cyanosis or clubbing. He has 1+ pedal edema. SKIN: Warm, moist and well-perfused. He has no other rashes or lesions. MUSCULOSKELETAL: Normal to inspection. Large joints appear normal. There is no evidence of inflamm ation or palpable effusion. NEUROLOGIC: Cranial nerves II-XII are grossly intact. He has no focal deficits. Normal speech and 5/5 strength in all four extremities. LABORATORY DATA: Sodium 137, potassium 3.7, chloride 110, bicarbonate 18, BUN 29, creatinine 1.59, g lucose 107, calcium 7.8. Liver functions completely within normal limits. INR is 1.3. His CBC show ed a white count of 32.7, hemoglobin 13.1, hematocrit 38.5, platelet count is 237,000. He has a left shift with 52% granulocytes and 38% bands, 5% lymphocytes. Troponin I was indeterminate 0.042, 0.04 6, 0.070. Lactic acid was normal at 1.5. Urinalysis showed a large leukocyte esterase, greater than 50 white blood cells and 4+ bacteria. Chest x-ray showed borderline vascular congestion. CT of the brain was negative for acute intracrani al abnormalities. ASSESSMENT AND PLAN: 1. Urinary tract infection. 2. Sepsis. 3. Hypertension. 4. Chronic diastolic congestive heart failure without acute exacerbation. 5. Chronic low back pain. 6. Gastroesophageal reflux disease. 7. Hyperlipidemia. 8. Obstructive sleep apnea. 9. Benign prostatic hypertrophy. PLAN: We will transition from Rocephin to cefepime pending urine culture. We will get repeat labs i n the morning. We will continue gentle hydration with 50 mL per hour normal saline. Continue home m edications otherwise including pain medicines and gabapentin. We will follow up with urine culture. Anticipate discharge in 1-2 days. We will get PT, OT evaluation to see if he needs rehabilitation w hen he goes back, he has been getting weaker for some time.
[2018-03-27] MEDS: Sodium Chloride 0.9% 1,000 ML IV SCH (14:34)
[2018-03-27] MEDS: tiZANidine HCl 4 MG TAB PO PRN (14:35)
[2018-03-27 17:21] VITALS: BMI 31.2
[2018-03-27] MEDS: Atorvastatin Calcium 40 MG TAB PO SCH (21:07)
[2018-03-27] MEDS: Tamsulosin HCl 0.4 MG CAP PO SCH (21:09)
[2018-03-28] MEDS: Cefepime 1 GM in Sodium Chloride 0.9% 100 ML IVPB SCH ×2 (05:31→18:03)
[2018-03-28 05:46] LABS: #Eosinphils 0.4 thou/uL (0.0-0.7); #Lymphocytes 1.4 thou/uL (1.20-3.40); #Monocytes 1.2 thou/uL (0.11-0.59); %Basophils 0.1 % (0.0-1.0); %Eosinophils 2.2 % (0.0-10.0); %Lymphocytes 8.4 % (21.0-51.0); %Neutrophils 82.3 % (42.0-75.0); Hemoglobin 12.1 g/dL (14.0-18.0); Mean Corpuscular HGB CONC 34.3 g/dL (32.0-36.0); Mean Corpuscular Hemoglobin 31.5 pg (27.0-31.0); Mean Corpuscular Volume 91.9 fL (78.0-98.0); Mean Platelet Volume 7.3 fL (7.4-10.4); Platelet Count 173 thou/uL (130-400); Red Blood Cell (RBC) Count 3.84 mill/uL (4.70-6.10)
[2018-03-28 06:08] LABS: Anion Gap 11 mmol/L (10-20); BUN (Urea Nitrogen) 27 mg/dL (8.4-25.7); Calc. Creatinine Clearance 58 mL/min (70-130); Calcium 8.1 mg/dL (7.8-10.44); Carbon Dioxide 16 mmol/L (23-31); Estimated GFR-MDRD 53; Glucose 89 mg/dL (83-110); Magnesium 1.8 mg/dL (1.6-2.6); Sodium 137 mmol/L (136-145)
[2018-03-28] MEDS: Metoprolol Tartrate 25 MG TAB PO SCH ×2 (08:47→21:51)
[2018-03-28] MEDS: Finasteride 5 MG TAB PO SCH (08:47)
[2018-03-28] MEDS: HYDROcodone/Acetaminophen 5/325 mg Tablet PO SCH ×2 (08:47→21:50)
[2018-03-28] MEDS: Polyethylene Glycol 3350 17 GM Packet PO SCH (08:47)
[2018-03-28] MEDS: Clopidogrel Bisulfate 75 MG TAB PO SCH (08:47)
[2018-03-28] MEDS: Gabapentin 300 MG CAP PO SCH ×3 (08:47→21:50)
[2018-03-28] MEDS: Aspirin 81 mg Enteric Coated Tablet PO SCH (08:47)
[2018-03-28] MEDS: Senokot 8.6 MG TAB PO SCH ×2 (08:47→21:49)
[2018-03-28] MEDS: Sodium Chloride 0.9% 1,000 ML IV SCH (08:52)
[2018-03-28 12:18] LABS: Chloride 114 mmol/L (98-107)
[2018-03-28] MEDS: traMADol HCl 50 MG TAB PO PRN (15:25)
--- NOTE | 2018-03-28 20:13 | EKG ---
Test Reason : Blood Pressure : / mmHG Vent. Rate : 094 BPM Atrial Rate : 094 BPM P-R Int : 160 ms QRS Dur : 100 ms QT Int : 356 ms P-R-T Axes : 045 -17 152 degrees QTc Int : 445 ms Normal sinus rhythm with sinus arrhythmia Possible Left atrial enlargement Abnormal ECG Confirmed by ANNAMARIA CAN ([id number]), editor newspaper SONIA JAMA ([id number]) on 03/28/2018 8:13:31 PM Referred By: Confirmed By:ANNAMARIA CAN
[2018-03-28] MEDS: Atorvastatin Calcium 40 MG TAB PO SCH (21:49)
[2018-03-28] MEDS: Tamsulosin HCl 0.4 MG CAP PO SCH (21:50)
[2018-03-29] MEDS: Sodium Chloride 0.9% 1,000 ML IV SCH ×2 (05:57→16:59)
[2018-03-29] MEDS: Cefepime 1 GM in Sodium Chloride 0.9% 100 ML IVPB SCH ×2 (06:44→18:00)
[2018-03-29] MEDS: Gabapentin 300 MG CAP PO SCH ×3 (10:23→21:44)
[2018-03-29] MEDS: Metoprolol Tartrate 25 MG TAB PO SCH ×2 (10:25→21:45)
[2018-03-29] MEDS: Finasteride 5 MG TAB PO SCH (10:25)
[2018-03-29] MEDS: Senokot 8.6 MG TAB PO SCH ×2 (10:25→21:44)
[2018-03-29] MEDS: HYDROcodone/Acetaminophen 5/325 mg Tablet PO SCH ×2 (10:28→21:45)
[2018-03-29] MEDS: Clopidogrel Bisulfate 75 MG TAB PO SCH (10:28)
[2018-03-29] MEDS: Aspirin 81 mg Enteric Coated Tablet PO SCH (10:29)
[2018-03-29] MEDS: Polyethylene Glycol 3350 17 GM Packet PO SCH (10:30)
--- NOTE | 2018-03-29 13:16 | PDOC.PN ---
- Subjective Encounter Start Date: 03/28/18 Encounter Start Time: 12:40 feels better overall, back about the same. No F/C, no N/V/d/C, no urinary symptoms, no CP or sOB All systems reviewed and neg x as above Rayna abx, no itching or rash - Objective Resuscitation Status: Resuscitation Status FULL:Full Resuscitation MAR Reviewed: Yes Vital Signs & Weight: Vital Signs (12 hours) Temp Pulse Resp BP Pulse Ox 03/29/18 11:10 97.5 F L 61 20 155/67 H 94 L 03/29/18 08:10 97.8 F 55 L 18 93 L 03/29/18 07:35 97.8 F 55 L 18 149/69 H 93 L 03/29/18 03:27 97.6 F 56 L 18 143/68 H 94 L Weight Admit Weight 187 lb 14.4 oz Weight 188 lb 4.8 oz I&O: 03/28/18 03/29/18 03/30/18 06:59 06:59 06:59 Intake Total 3181 2663 300 Balance 3181 2663 300 Result Diagrams: 03/28/18 05:25 03/28/18 05:25 Phys Exam - Physical Examination Constitutional: NAD HEENT: PERRLA, moist MMs, sclera anicteric, oral pharynx no lesions Neck: no nodes, no JVD, supple, full ROM Respiratory: no wheezing, no rales, no rhonchi, clear to auscultation bilateral Cardiovascular: RRR, no rub Gastrointestinal: soft, non-tender, no distention, positive bowel sounds Musculoskeletal: edema present Neurological: non-focal, normal sensation, moves all 4 limbs Lymphatic: no nodes Psychiatric: normal affect, A&O x 3 Skin: no rash, normal turgor, cap refill <2 seconds Dx/Plan (1) UTI (urinary tract infection) Status: Acute Qualifiers: Urinary tract infection type: acute cystitis Hematuria presence: without hematuria Qualified Code(s): N30.00 - Acute cystitis without hematuria Comment: E coli on culture, mott sensitive, to rehab soon, can transition to po aoxicillin 500mg po TIS to complete 7-10 days (2) Sepsis Code(s): A41.9 - SEPSIS, UNSPECIFIED ORGANISM Status: Acute Qualifiers: Sepsis type: Escherichia coli Qualified Code(s): A41.51 - Sepsis due to Escherichia coli [E. coli] Comment: present on admit, resolving. recheck WBC friday (3) Chronic diastolic CHF (congestive heart failure) Code(s): I50.32 - CHRONIC DIASTOLIC (CONGESTIVE) HEART FAILURE Status: Chronic (4) BPH (benign prostatic hyperplasia) Code(s): N40.0 - BENIGN PROSTATIC HYPERPLASIA WITHOUT LOWER URINRY TRACT SYMP Status: Chronic Qualifiers: Lower urinary tract symptom presence: symptoms present Lower urinary tract symptom detail: incomplete bladder emptying Qualified Code(s): N40.1 - Benign prostatic hyperplasia with lower urinary tract symptoms; R39.14 - Feeling of incomplete bladder emptying (5) CAD (coronary artery disease) Code(s): I25.10 - ATHSCL HEART DISEASE OF [place] CORONARY ARTERY W/O ANG PCTRS Status: Chronic Qualifiers: Coronary Disease-Associated Artery/Lesion type: unspecified vessel or lesion type [place] vs. transplanted heart: [place] heart Associated angina: without angina Qualified Code(s): I25.10 - Atherosclerotic heart disease of [place] coronary artery without angina pectoris (6) CKD (chronic kidney disease) stage 3, GFR 30-59 ml/min Code(s): N18.3 - CHRONIC KIDNEY DISEASE, STAGE 3 (MODERATE) Status: Chronic (7) Chronic low back pain Code(s): M54.5 - LOW BACK PAIN; G89.29 - OTHER CHRONIC PAIN Status: Chronic Qualifiers: Back pain laterality: unspecified Sciatica presence: without sciatica Qualified Code(s): M54.5 - Low back pain; G89.29 - Other chronic pain (8) GERD (gastroesophageal reflux disease) Code(s): K21.9 - GASTRO-ESOPHAGEAL REFLUX DISEASE WITHOUT ESOPHAGITIS Status: Chronic Qualifiers: Esophagitis presence: without esophagitis Qualified Code(s): K21.9 - Gastro -esophageal reflux disease without esophagitis - Plan cont current plan of care, continue antibiotics, PT/OT, social services analyst, out of bed/ambulate * . to [facility] for rehab at [facility] when approved, lives in assisted living there currently
--- NOTE | 2018-03-29 13:25 | PDOC.PN ---
- Subjective Encounter Start Date: 03/29/18 Encounter Start Time: 10:15 No new complaints, sleepy. tele reviewed, SVT las night for about 15 seconda, then 4 beats, two beats of bigeminy really wth PVC ad SVT. No symptoms No f/C, no N/V/d/C. no new complaints Back abotu the same all systems reviwed and neg x as above - Objective Resuscitation Status: Resuscitation Status FULL:Full Resuscitation Vital Signs & Weight: Vital Signs (12 hours) Temp Pulse Resp BP Pulse Ox 03/29/18 11:10 97.5 F L 61 20 155/67 H 94 L 03/29/18 08:10 97.8 F 55 L 18 93 L 03/29/18 07:35 97.8 F 55 L 18 149/69 H 93 L 03/29/18 03:27 97.6 F 56 L 18 143/68 H 94 L Weight Admit Weight 187 lb 14.4 oz Weight 188 lb 4.8 oz I&O: 03/28/18 03/29/18 03/30/18 06:59 06:59 06:59 Intake Total 3181 2663 300 Balance 3181 2663 300 Result Diagrams: 03/28/18 05:25 03/28/18 05:25 Phys Exam - Physical Examination Constitutional: NAD HEENT: PERRLA, moist MMs, sclera anicteric, oral pharynx no lesions Neck: no nodes, no JVD, supple, full ROM Respiratory: no wheezing, no rales, no rhonchi, clear to auscultation bilateral Cardiovascular: RRR, no significant murmur, no rub Gastrointestinal: soft, non-tender, no distention, positive bowel sounds Musculoskeletal: edema present Neurological: non-focal, normal sensation, moves all 4 limbs Lymphatic: no nodes Psychiatric: normal affect, A&O x 3 Skin: no rash, normal turgor, cap refill <2 seconds Dx/Plan (1) UTI (urinary tract infection) Status: Acute Qualifiers: Urinary tract infection type: acute cystitis Hematuria presence: without hematuria Qualified Code(s): N30.00 - Acute cystitis without hematuria Comment: E coli on culture, mott sensitive, to rehab soon, can transition to po aoxicillin 500mg po TIS to complete 7-10 days (2) Sepsis Code(s): A41.9 - SEPSIS, UNSPECIFIED ORGANISM Status: Acute Qualifiers: Sepsis type: Escherichia coli Qualified Code(s): A41.51 - Sepsis due to Escherichia coli [E. coli] Comment: present on admit, resolving. recheck WBC friday (3) Chronic diastolic CHF (congestive heart failure) Code(s): I50.32 - CHRONIC DIASTOLIC (CONGESTIVE) HEART FAILURE Status: Chronic (4) BPH (benign prostatic hyperplasia) Code(s): N40.0 - BENIGN PROSTATIC HYPERPLASIA WITHOUT LOWER URINRY TRACT SYMP Status: Chronic Qualifiers: Lower urinary tract symptom presence: symptoms present Lower urinary tract symptom detail: incomplete bladder emptying Qualified Code(s): N40.1 - Benign prostatic hyperplasia with lower urinary tract symptoms; R39.14 - Feeling of incomplete bladder emptying (5) CAD (coronary artery disease) Code(s): I25.10 - ATHSCL HEART DISEASE OF [place] CORONARY ARTERY W/O ANG PCTRS Status: Chronic Qualifiers: Coronary Disease-Associated Artery/Lesion type: unspecified vessel or lesion type [place] vs. transplanted heart: [place] heart Associated angina: without angina Qualified Code(s): I25.10 - Atherosclerotic heart disease of [place] coronary artery without angina pectoris (6) CKD (chronic kidney disease) stage 3, GFR 30-59 ml/min Code(s): N18.3 - CHRONIC KIDNEY DISEASE, STAGE 3 (MODERATE) Status: Chronic (7) Chronic low back pain Code(s): M54.5 - LOW BACK PAIN; G89.29 - OTHER CHRONIC PAIN Status: Chronic Qualifiers: Back pain laterality: unspecified Sciatica presence: without sciatica Qualified Code(s): M54.5 - Low back pain; G89.29 - Other chronic pain (8) GERD (gastroesophageal reflux disease) Code(s): K21.9 - GASTRO-ESOPHAGEAL REFLUX DISEASE WITHOUT ESOPHAGITIS Status: Chronic Qualifiers: Esophagitis presence: without esophagitis Qualified Code(s): K21.9 - Gastro -esophageal reflux disease without esophagitis - Plan cont current plan of care, continue antibiotics, PT/OT, protective services social worker, out of bed/ambulate * . hopefully to rehab tomorrow.
[2018-03-29] MEDS: traMADol HCl 50 MG TAB PO PRN (17:59)
[2018-03-29] MEDS: Atorvastatin Calcium 40 MG TAB PO SCH (21:44)
[2018-03-29] MEDS: Tamsulosin HCl 0.4 MG CAP PO SCH (21:45)
[2018-03-29] MEDS: tiZANidine HCl 4 MG TAB PO PRN (22:08)
[2018-03-30 05:53] LABS: Anion Gap 10 mmol/L (10-20); BUN (Urea Nitrogen) 17 mg/dL (8.4-25.7); Calc. Creatinine Clearance 71 mL/min (70-130); Calcium 8.6 mg/dL (7.8-10.44); Carbon Dioxide 21 mmol/L (23-31); Chloride 112 mmol/L (98-107); Estimated GFR-MDRD 67; Glucose 96 mg/dL (83-110); Magnesium 1.8 mg/dL (1.6-2.6); Sodium 139 mmol/L (136-145)
[2018-03-30 06:18] LABS: Band 16 % (5-11); Eosinophils 2 % (0-10); Hemoglobin 12.2 g/dL (14.0-18.0); Lymphocytes 16 % (21-51); MDiff Complete? YES; Mean Corpuscular HGB CONC 33.7 g/dL (32.0-36.0); Mean Corpuscular Hemoglobin 30.6 pg (27.0-31.0); Mean Platelet Volume 7.1 fL (7.4-10.4); Metamyelocyte 1 % (0-0); Monocytes 13 % (0-10); Neutrophil 52 % (42-75); PLT Morphology Comment Appears Adequate; Platelet Count 189 thou/uL (130-400); RBC Distribution Width 12.9 % (11.5-14.5); White Blood Cell (WBC) Count 11.1 thou/uL (4.8-10.8)
[2018-03-30] MEDS: Cefepime 1 GM in Sodium Chloride 0.9% 100 ML IVPB SCH ×2 (06:19→18:35)
[2018-03-30] MEDS: Polyethylene Glycol 3350 17 GM Packet PO SCH (09:02)
[2018-03-30] MEDS: Senokot 8.6 MG TAB PO SCH ×2 (09:03→22:00)
[2018-03-30] MEDS: Metoprolol Tartrate 25 MG TAB PO SCH ×2 (09:03→22:00)
[2018-03-30] MEDS: Gabapentin 300 MG CAP PO SCH ×3 (09:03→21:58)
[2018-03-30] MEDS: Aspirin 81 mg Enteric Coated Tablet PO SCH (09:04)
[2018-03-30] MEDS: Clopidogrel Bisulfate 75 MG TAB PO SCH (09:04)
[2018-03-30] MEDS: Finasteride 5 MG TAB PO SCH (09:04)
[2018-03-30] MEDS: HYDROcodone/Acetaminophen 5/325 mg Tablet PO SCH ×2 (09:05→21:59)
--- NOTE | 2018-03-30 10:35 | PDOC.PN ---
- Subjective Encounter Start Date: 03/30/18 Encounter Start Time: 10:25 Subjective: f/u for UTI with E. coli tx with Cefepime and pansensitive organism. States -: doing better. - Objective Resuscitation Status: Resuscitation Status FULL:Full Resuscitation MAR Reviewed: Yes Vital Signs & Weight: Weight Admit Weight 187 lb 14.4 oz Weight 188 lb 4.8 oz I&O: 03/29/18 03/30/18 03/31/18 06:59 06:59 06:59 Intake Total 2663 1620 Output Total 525 Balance 2663 1095 Result Diagrams: 03/30/18 05:00 03/30/18 05:00 Additional Labs: Microbiology 03/26/18 04:51 Urine Straight Catheter Urine Culture - Final Escherichia coli 03/26/18 04:31 Venous blood - Right Arm Blood Culture - Preliminary NO GROWTH AT 48 HOURS 03/26/18 04:31 Venous blood - Left Hand Blood Culture - Preliminary NO GROWTH AT 48 HOURS Laboratory Tests 03/26/18 03/27/18 03/27/18 04:31 04:57 04:57 WBC 32.7 H 27.1 H Band Neuts % (Manual) 38 H 4 L Creatinine 1.48 H 03/28/18 03/28/18 03/30/18 05:25 05:25 05:00 WBC 17.0 H Band Neuts % (Manual) 16 H Creatinine 1.31 H Radiology Reviewed by me: Yes (CT brain - no acute process) EKG Reviewed by me: Yes (Tele - SR) Phys Exam - Physical Examination Constitutional: NAD HEENT: PERRLA, sclera anicteric, oral pharynx no lesions Neck: no nodes, no JVD, supple, full ROM Respiratory: no wheezing, no rales, no rhonchi, clear to auscultation bilateral II/ GOYO LUSB, S1, S2 Cardiovascular: RRR, no rub, gallop Gastrointestinal: soft, non-tender, no distention, positive bowel sounds Musculoskeletal: no edema, pulses present Neurological: non-focal, normal sensation Psychiatric: A&O x 3 Skin: no rash, normal turgor, cap refill <2 seconds Dx/Plan (1) UTI (urinary tract infection) Status: Acute Qualifiers: Urinary tract infection type: acute cystitis Hematuria presence: without hematuria Qualified Code(s): N30.00 - Acute cystitis without hematuria Comment: E. coli pansensitive, start Amoxicillin in 24h, continue Cefepime (2) Sepsis Code(s): A41.9 - SEPSIS, UNSPECIFIED ORGANISM Status: Acute Qualifiers: Sepsis type: Escherichia coli Qualified Code(s): A41.51 - Sepsis due to Escherichia coli [E. coli] Comment: present on admit, resolving (3) Weakness generalized Code(s): R53.1 - WEAKNESS Status: Acute Comment: Multifactorial, awaiting approval for SNF placement in next 48h, PT for mobilization (4) BPH (benign prostatic hyperplasia) Code(s): N40.0 - BENIGN PROSTATIC HYPERPLASIA WITHOUT LOWER URINRY TRACT SYMP Status: Chronic Qualifiers: Lower urinary tract symptom presence: symptoms present Lower urinary tract symptom detail: incomplete bladder emptying Qualified Code(s): N40.1 - Benign prostatic hyperplasia with lower urinary tract symptoms; R39.14 - Feeling of incomplete bladder emptying Comment: Continue Proscar and Flomax (5) CKD (chronic kidney disease) stage 3, GFR 30-59 ml/min Code(s): N18.3 - CHRONIC KIDNEY DISEASE, STAGE 3 (MODERATE) Status: Chronic Comment: Improved, avoid nephrotoxic meds and limit contrast exposure - Plan continue antibiotics, PT/OT, social insurance analyst, out of bed/ambulate, DVT proph w/ SCDs Stable currently -: Continue Cefepime another 24h -: Continue Proscar/Flomax -: PT for mobilization -: Await approval for SNF * AM lab: CBC * Likely d/c to SNF in 48h, [facility]
[2018-03-30] MEDS: Atorvastatin Calcium 40 MG TAB PO SCH (21:58)
[2018-03-30] MEDS: Tamsulosin HCl 0.4 MG CAP PO SCH (21:59)
[2018-03-31] MEDS: Cefepime 1 GM in Sodium Chloride 0.9% 100 ML IVPB SCH (06:01)
[2018-03-31] MEDS: Aspirin 81 mg Enteric Coated Tablet PO SCH (11:35)
[2018-03-31] MEDS: Gabapentin 300 MG CAP PO SCH (11:36)
[2018-03-31] MEDS: Metoprolol Tartrate 25 MG TAB PO SCH (11:36)
[2018-03-31] MEDS: Finasteride 5 MG TAB PO SCH (11:37)
[2018-03-31] MEDS: Senokot 8.6 MG TAB PO SCH (11:37)
[2018-03-31] MEDS: HYDROcodone/Acetaminophen 5/325 mg Tablet PO SCH (11:38)
[2018-03-31] MEDS: Clopidogrel Bisulfate 75 MG TAB PO SCH (11:38)
[2018-03-31] MEDS: Polyethylene Glycol 3350 17 GM Packet PO SCH (11:40)
[2018-03-31 13:32] VITALS: BP 145/68; TEMP 97.5
--- NOTE | 2018-04-01 00:05 | DIS ---
DATE OF ADMISSION: 03/26/2018 DATE OF DISCHARGE: 03/31/2018 DISCHARGE DIAGNOSES: 1. Urinary tract infection with Escherichia coli, stable. 2. Sepsis secondary to urinary tract infection with Escherichia coli, resolving. 3. Generalized weakness. 4. Benign prosthetic hyperplasia. 5. Chronic kidney disease stage 3. 6. Deconditioning. CONSULTATIONS: None. PERTINENT LABORATORY DATA AND IMAGING DATA: Creatinine ranged between 1.07-1.59, estimated GFR rangi ng between 43-67, lactic acid level 1.6, troponin I ranged between 0.042-0.070. CBC showed a white b lood cell count ranging between 11.1-32.7, hemoglobin ranged between 11.8-13.1. Blood cultures x2 da tom 03/26/2018 showed no growth at 5 days. Urine culture dated 03/26/2018 showed greater than 100,00 0 colonies of E. coli, pansensitive. Portable chest x-ray dated 03/26/2018 showed pulmonary vascular prominence. CT of the brain without contrast dated 03/26/2018 showed no acute intracranial process. Chronic small vessel ischemic changes noted. HOSPITAL COURSE: Patient was initially admitted to the telemetry unit after presenting with fever an d elevated white count of 32.7 thousand. The patient underwent general evaluation including multiple imaging studies and metabolic survey showing evidence of urinary tract infection. Patient with know n history of benign prosthetic hyperplasia on Proscar and Flomax. The patient was placed on broad sp ectrum IV antibiotic therapy for suspected urinary tract infection and associated sepsis. The patien t received IV fluids and general supportive measures. The patient received IV Rocephin, transitionin g to IV cefepime with urine culture showing a pansensitive E. coli species. The patient did clinical ly improved with remaining afebrile throughout the hospital course. Serial monitoring of leukocytosi s showed overall resolving trend by the time of discharge. Due to patient's overall deconditioned st atus and comorbid conditions, patient was evaluated for potential inpatient rehabilitation stay. The patient was not deemed an appropriate candidate for inpatient rehabilitation and will return home [facility] services for further physical therapy. Overall, the patient did remain clinically sta ble during the hospital course. I have examined the patient at the time of discharge and [facility] The patient overall clinically stable and ready for discharge on 03/31/2018. DISCHARGE MEDICATIONS: 1. Enteric coated aspirin 81 mg 1 tab p.o. daily. 2. Lipitor 80 mg p.o. at bedtime. 3. Calcium carbonate 500 mg p.o. daily. 4. Plavix 75 mg 1 tab p.o. daily. 5. Proscar 5 mg one tablet p.o. daily. 6. Gabapentin 300 mg p.o. b.i.d. and 600 mg p.o. at bedtime. 7. [place] 5/325 mg 1 tab p.o. b.i.d. p.r.n. pain. 8. Metoprolol tartrate 25 mg p.o. b.i.d. 9. Protonix 20 mg p.o. daily. 10. Zoloft 25 mg p.o. daily. 11. Flomax 0.4 mg p.o. at bedtime. 12. Zanaflex 4 mg p.o. q.8 hours p.r.n. 13. Tramadol 50 mg p.o. b.i.d. p.r.n. 14. Levaquin 500 mg p.o. daily x5 days. FOLLOWUP: The patient will follow up with primary care provider, Dr. Carter Salgado within 7 days of d ischarge. CONDITION ON DISCHARGE: Fair. ACTIVITY: Ad michelle. Rolling walker with standby/contact guard assistance with physical therapy. Gene ral fall risk precautions. DIET: Heart healthy. CODE STATUS: FULL. DISPOSITION: Standard home health services including physical therapy and nursing care 03/31/2018.
== END 2018-03-31 16:15 | disposition home health service (06) | DRG 872 ==
LOC: ERS 04:00 → 2SE 07:49
PROVIDERS: ADMIT Internal Medicine; ATTEND Internal Medicine
DX: A41.51 Sepsis due to Escherichia coli [E. coli] (principal); I13.0 Hypertensive heart and chronic kidney disease with heart failure and stage 1 through stage 4 chronic kidney disease, or unspecified chronic kidney disease; I50.32 Chronic diastolic (congestive) heart failure; N30.00 Acute cystitis without hematuria; N18.3 Chronic kidney disease, stage 3 (moderate); G47.33 Obstructive sleep apnea (adult) (pediatric); I25.10 Atherosclerotic heart disease of native coronary artery without angina pectoris; M54.5 Low back pain; G89.29 Other chronic pain; K21.9 Gastro-esophageal reflux disease without esophagitis; E78.5 Hyperlipidemia, unspecified; N40.1 Benign prostatic hyperplasia with lower urinary tract symptoms; R39.14 Feeling of incomplete bladder emptying; Z79.02 Long term (current) use of antithrombotics/antiplatelets; Z79.82 Long term (current) use of aspirin
CPT/HCPCS: 36415; 51701; 70450; 71045; 80048; 80053; 81003; 81015; 82553; 83605; 83735; 84484; 85025; 85610; 85730; 87040; 87077; 87086; 87186; 93005; 96365; 96367; A4216; G8978-GP-CM; G8979-GP-CK; G8987-GO-CL; G8988-GO-CI; J0692; J2543; J3370; J7050

== ENCOUNTER 2018-05-11 09:53 | Outpatient (CLI) | payer MEDICARE ==
--- NOTE | 2018-05-12 16:02 | RAD ---
MODIFIED BARIUM SWALLOW: History: Dysphagia, R13.10; Feeding difficulties, R63.3 Technique: Various consistencies of barium sulfate was given to the patient. Fluoroscopy was performed. FINDINGS: Images demonstrate the patient to ingest the various consistencies of barium. No definite evidence of aspiration seen. No significant valleculae pooling seen. No evidence of pyriform sinus pooling seen. The epiglottis closes normally. Oral phase is grossly unremarkable on these images. Correlate with direct visualization at time of fl uoroscopy. IMPRESSION: Normal modified barium swallow. No definite evidence of aspiration seen. POS: [facility]
== END 2018-05-11 09:54 | disposition home or self-care (01) ==
PROVIDERS: ATTEND Nurse Practitioner Family
DX: R13.10 Dysphagia, unspecified (principal); R63.3 Feeding difficulties
CPT/HCPCS: 74230; G8996-GN-CL; G8997-GN-CK

== ENCOUNTER 2018-05-19 17:57 | Inpatient (IN) | payer MEDICARE ==
[~2018-05-19 17:57] MED LIST: ISOVUE-370 76%-LOCM 1 ML ONE
[2018-05-19 18:24] LABS: #Basophils 0.1 thou/uL (0.0-0.2); #Eosinphils 0.5 thou/uL (0.0-0.7); #Lymphocytes 2.2 thou/uL (1.20-3.40); #Monocytes 1.2 thou/uL (0.11-0.59); #Neutrophils 4.7 thou/uL (1.40-6.50); %Basophils 1.1 % (0.0-1.0); %Eosinophils 5.5 % (0.0-10.0); %Lymphocytes 25.5 % (21.0-51.0); %Monocytes 13.9 % (0.0-10.0); Hemoglobin 14.9 g/dL (14.0-18.0); Mean Corpuscular Hemoglobin 29.9 pg (27.0-31.0); Mean Corpuscular Volume 90.7 fL (78.0-98.0); Mean Platelet Volume 7.1 fL (7.4-10.4); Platelet Count 249 thou/uL (130-400); RBC Distribution Width 13.4 % (11.5-14.5); Red Blood Cell (RBC) Count 4.99 mill/uL (4.70-6.10); White Blood Cell (WBC) Count 8.7 thou/uL (4.8-10.8)
[2018-05-19 18:31] LABS: INR-International Normal Ratio 1.1; PTT 29.2 SEC (22.9-36.1); Prothrombin Time 13.9 SEC (12.0-14.7)
[2018-05-19 18:38] LABS: ALT (SGPT) 13 U/L (8-55); AST (SGOT) 17 U/L (5-34); Albumin 3.5 g/dL (3.4-4.8); Alkaline Phosphatase 98 U/L (40-150); Anion Gap 13 mmol/L (10-20); BUN (Urea Nitrogen) 25 mg/dL (8.4-25.7); Bilirubin, Total 0.4 mg/dL (0.2-1.2); Calc. Creatinine Clearance 0 mL/min (70-130); Carbon Dioxide 25 mmol/L (23-31); Chloride 106 mmol/L (98-107); Estimated GFR-MDRD 43; Globulin 3.7 g/dL (2.4-3.5); Glucose 87 mg/dL (83-110); Potassium 4.6 mmol/L (3.5-5.1); Protein, Total 7.2 g/dL (5.8-8.1); Sodium 139 mmol/L (136-145)
[2018-05-19 18:42] LABS: CKMB 1.5 ng/mL (0-6.6); Troponin I 0.068 ng/mL (< 0.028)
[2018-05-19 18:56] LABS: Bilirubin Negative (Negative); Blood, Urine Negative (Negative); Clarity CLEAR (Clear); Glucose, Urine (Dipstick) Negative (Negative); Leukocyte Negative (Negative); Nitrite Negative (Negative); Protein, Urine (Dipstick) Negative (Neg-Trace); Specific Gravity, Urine 1.012 (1.002-1.036); Urobilinogen 0.2 mg/dL (0.2-1.0)
--- NOTE | 2018-05-19 19:27 | CT ---
CT OF THE BRAIN WITHOUT CONTRAST: 05/19/18 COMPARISON: None. HISTORY: Slurred speech and left facial drooping that began one hour ago. TECHNIQUE: Multiple contiguous axial images were obtained in a CT of the brain without contrast. FINDINGS: There are scattered hypodensities in the subcortical and periventricular white matter, likely seconda ry to small vessel ischemic disease. Encephalomalacia is seen in the left parietal lobe and right frontal lobe, unchanged. No new large co nfluent infarction is seen. There is no evidence of hydrocephalus, intracranial hemorrhage or extra-a xial fluid collections. The calvarium and overlying soft tissues are unremarkable. The visualized paranasal sinuses and masto id air cells are well aerated. IMPRESSION: No evidence of acute intracranial abnormality. BJ Brannon was notified of the findings at 6:09 p.m. on 05/19/18. Code CR
[2018-05-19] MEDS ORDERED: Acetaminophen 650 MG Suppository ONE (20:28)
[2018-05-19] MEDS ORDERED: Acetaminophen 325 MG TAB ONE (20:29)
--- NOTE | 2018-05-19 20:54 | CT ---
CT ANGIOGRAM OF THE HEAD CT ANGIOGRAM OF THE NECK 05/19/18 HISTORY: Stroke alert. Slurred speech. Left facial droop. Onset one hour prior to arrival. COMPARISON: None. TECHNIQUE: CT angiogram of the head and neck are performed in the axial plane. Three dimensional reformatted jp ges are submitted for interpretation. FINDINGS: On the postcontrast head CT, there is evidence of remote insult involving the left parietal and right frontal lobes. There is associated malacic change. Confluent white matter hypodensity due to chronic small vessel ischemic changes are noted. Cortical russell-white matter differentiation is otherwise pre served. No evidence of hydrocephalus. Remote hypodensity in the right subinsular white matter is also noted. Adequate aeration of the sinuses and mastoid air cells. Aerodigestive tract appears to be patent. There is asymmetrically prominent soft tissues along the po sterior left aspect of the oral cavity (image #168, series 2). Directed visualization is recommended to exclude a neoplastic process. Limited evaluation of the oral cavity due to dental amalgam artifact . Grossly, the midline fatty raphae of the tongue is preserved. Epiglottis has a normal caliber. Pre- epiglottic fat is preserved. Symmetric attenuation of the parotid and submandibular glands. Symmetric attenuation of the sternocle idomastoid muscles. There is no evidence of lymphadenopathy by size criteria. Unremarkable thyroid gland. Upper mediastinum is unremarkable. Heart is enlarged. There are coronary artery calcifications. Groun d glass opacities in the lung parenchyma which may represent edema or infiltrate. There is atheroscle rosis of the visualized aortic arch. Cervical spine vertebral body height is maintained. There is no fracture or malalignment. There are v arying degrees of central canal stenosis and neural foraminal narrowing on the basis of degenerative change. CT ANGIOGRAM: RIGHT CAROTID: There is mild narrowing of the right carotid artery origin due to atherosclerotic disease. The common carotid artery, carotid bifurcation has appropriate enhancement and luminal diameter. There appears to be a short segment moderate stenosis (approximately 60% stenosis) involving the proximal right int ernal carotid artery. LEFT CAROTID: There is mild narrowing of the origin of the left carotid artery. The common carotid artery, carotid bifurcation have an overall appropriate enhancement and luminal diameter. There appears to be a short segment mild stenosis of the distal left common carotid artery. There is short segment mild stenosis involving the proximal left internal carotid artery. The mid to distal left internal carotid artery have appropriate enhancement and luminal diameter. The visualized subclavian arteries are patent. The right vertebral artery is reconstituted via collat erals at approximately the C2-3 disc space. The left vertebral artery has short segment moderate sten osis at its origin. Questionable focal area of severe stenosis may also be present. Once the vertebra l artery enters the foramen transversarium, the left vertebral artery is patent throughout its course in the neck. CT ANGIOGRAM OF THE HEAD: There is appropriate enhancement and luminal diameter of the intracranial internal carotid arteries. ANTERIOR CIRCULATION: The left and right A1 segments have appropriate enhancement and luminal diameter. The right M1 segmen t has mild nodularity but does appear to be patent. The right MCA distribution is unremarkable. A nor mal appearing left M1 segment is not appreciated. Reference made to the recent noncontrast head CT ott ggests possible thrombus in the left internal carotid artery terminus. The vessels noted in the left MCA distribution are presumed to be via collateral flow. There is high grade occlusion of the intracranial right vertebral artery. Left vertebral artery is a major supplying vessel to the basilar artery. The basilar artery appears to terminate at the level of the superior cerebellar arteries. The right TELEX OPERATOR has a origin. There is high grade stenosis at the proximal most aspect of the left P1 segment. IMPRESSION: 1. 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 There is lack of opacification and enhancement of the left M1 segment. 2. Atherosclerosis of both carotid arteries as described above without high grade stenosis, base d upon NASCET criteria. There is moderate stenosis involving the right internal carotid artery based upon NASCET criteria. 3. High grade stenosis involving the proximal left P1 segment. 4. Results of the study discussed with BJ Brannon 05/19/18 at 6:42 p.m. Code CR POS: [facility]
--- NOTE | 2018-05-19 21:09 | RAD ---
SINGLE VIEW OF THE CHEST: 05/19/18 COMPARISON: 03/26/18 HISTORY: Chest pain and shortness of breath. FINDINGS: Single view of the chest shows a normal sized cardiomediastinal silhouette. The patient is status pos t sternotomy. There is no evidence of consolidation, mass, or pleural effusion. Increased interstitia l markings are present. IMPRESSION: No evidence of acute cardiopulmonary disease. POS: [facility]
[2018-05-19] MEDS ORDERED: Labetalol HCl 100 MG/20 ML VIAL SLOW IVP PRN (23:33)
[2018-05-19] MEDS ORDERED: Acetaminophen 325 MG TAB PO PRN (23:33)
[2018-05-19] MEDS ORDERED: Bisacodyl 5 MG TAB PO PRN (23:33)
[2018-05-19] MEDS ORDERED: Ondansetron ODT 4 MG TAB PO PRN (23:33)
[2018-05-19] MEDS ORDERED: Ondansetron PF 4 MG/2 ML Vial IVP PRN (23:33)
[2018-05-19] MEDS ORDERED: hydrALAZINE 20 MG/ML VIAL SLOW IVP PRN (23:33)
[2018-05-20 00:08] VITALS: BMI 31.2
[2018-05-20] MEDS ORDERED: Morphine 2 MG/ML SYRINGE SLOW IVP SCH (00:45)
[2018-05-20 00:56] LABS: Troponin I 0.078 ng/mL (< 0.028)
--- NOTE | 2018-05-20 01:40 | HP ---
CHIEF COMPLAINT: Slurred speech and facial droop. HISTORY OF PRESENT ILLNESS: This is a 77-year-old male with past medical history of hypertension, hyperlipidemia, BPH, GERD, low back pain presenting with slurred speech and left facial droop, which started today around 1700. Per the patient, he was at the assisted living [facility] when the nurse noticed that he had a left facial droop and he was slurring on his speech. Patient's director music also noted that he was having a left facial droop ; therefore, EMS was called and patient was transferred to our hospital to be evaluated. Per the patient, he has had this in the past, but he does not recall exactly when he had these symptoms in the past. Of note, patient was recently admitted on 04/09/2018 for UTI secondary to E. coli and patient is also known to have past medical history of TIA, CKD stage 3, hypertension. During the initial workup for stroke, patient's NIH stroke scale was 2. Patient 's mental status, GCS was 15 and patient was noted to have slurred speech and left facial droop; otherwise, all initial examination that was done were negative. Patient had a modified-barium swallow done on 05/11/2018 and patient failed the modified barium test. Also, patient had echo done in the past 6 months and patient's left ventricular ejection fraction was 60%-65% and patient had a left atrial dilatation. REVIEW OF SYSTEMS: Positive for slurred speech and facial droop, otherwise as documented in the HPI. All other systems were reviewed and are negative. PAST MEDICAL HISTORY: Hypertension, hyperlipidemia, BPH, sleep apnea, GERD, bronchial pneumonia, low back pain, frequent UTIs. PAST SURGICAL HISTORY: Prostate surgery, bilateral cataract surgery, heart valve replacement, appendectomy, coronary artery bypass graft. FAMILY HISTORY: Reviewed and noncontributory to this visit. SOCIAL HISTORY: Patient was a former drug user. Patient used to use marijuana. Patient used to smoke tobacco in the past. Patient is a social drinker. Patient lives at [facility]. ALLERGIES: No known drug allergies. MEDICATIONS: Patient is on aspirin 81 mg, atorvastatin 80 mg, calcium carbonate 500 mg tabs, gabapentin 300 mg b.i.d., hydrocodone 5 mg/325 mg b.i.d. , pantoprazole 20 mg daily, MiraLax 17 grams p.o. daily, sennosides 8.6 mg tablet p.o. b.i.d., Zanaflex 4 mg p.o. q.8, tramadol 50 mg tablet b.i.d. p.o., clopidogrel 75 mg daily, finasteride 5 mg daily, metoprolol tartrate 25 mg b.i.d., sertraline 25 mg p.o. daily, tamsulosin 0.4 mg at bedtime. PHYSICAL EXAMINATION: VITAL SIGNS: Blood pressure is 159/59, pulse 59, respiratory rate of 22, temperature of 98.5. GENERAL: Patient is lying in bed comfortably, does not appear to be in any acute distress. Patient is having difficulty, mumbling his words. Patient has left facial droop that is noted. HEENT: Normocephalic, atraumatic. Pupils are equally round and reactive to light. Extraocular movements are intact. No scleral icterus. Mucous membranes are dry. NECK: Trachea is midline. Full range of motion. No JVD. RESPIRATORY: Lungs clear to auscultation bilaterally. No wheezing, no rales, no rhonchi is appreciated. CARDIOVASCULAR: Positive S1, S2. Regular rate and rhythm. No murmurs, no gallops, or rubs appreciated. ABDOMEN: Soft, nontender, nondistended. BACK: Patient has marked tenderness at the upper back. EXTREMITIES: Patient has 5/5 upper extremity strength and 5/5 lower extremity strength. Good pulses bilaterally of the upper extremity and lower extremities bilaterally. Patient has good strength in the lower extremities. No edema noted. NEUROLOGIC: GCS of 15. Cranial nerves II through XII. Patient do have abnormal left facial droop with slurred speech. No arm drift. Normal strength bilaterally. No dysmetria. NIH stroke scale of 2. SKIN: Warm, dry, and intact. PSYCHIATRIC: Alert, oriented x3, normal affect. IMAGIN. EKG showed sinus with a rate of 61. 2. CT of the brain showed no evidence of acute intracranial abnormality. 3. CT angiography showed abrupt termination of the left internal carotid artery at the carotid terminus. There is lack of opacification and enhancement of the left M1 segment. Atherosclerosis of both carotid arteries as described above without high-grade stenosis based upon NASCET criteria. There is moderate stenosis involving the right internal carotid artery based upon NASCET criteria. There is a high-grade stenosis involving the proximal left P1 segment. Results of the study was discussed with ED PA. ASSESSMENT AND PLAN: This is a 77-year-old male being admitted for: 1. cerebrovascular accident. At this point, patient has been started on aspirin and atorvastatin. We have consulted Neurology. We are going to consult Neurosurgery due to high-grade stenosis that is noted on the CTA. Will follow up on MRI in the AM. We will follow up with their recommendations. We have admitted the patient to the stroke unit. We will monitor the patient closely. 2. Dysphagia. Patient is having difficulty with swallowing. Modified-barium exam that was done in the past, so the patient cannot tolerate p.o. Patient was being modified to take a different diet, so on this visit, we will make the patient n.p.o. at this time and we will get speech and swallow evaluation, so the patient can be started on the proper diet. 3. Acute kidney injury. Patient's creatinine is currently 1.57. We have ordered renal function test, we will follow up on that. Patient's elevated creatinine is most likely due to dehydration. Patient is currently receiving fluids. We will continue patient on IV hydration and we will monitor the patient closely. 4. History of hypertension. We will monitor the patient's blood pressure closely and we will give patient blood pressure medication as needed. 5. Hyperlipidemia. Currently, patient is on atorvastatin. We will continue this medication. 6. BPH. We will start the patient on home medication. 7. Low back pain. We will continue patient on pain medications and we will monitor the patient closely. 8. History of coronary artery bypass grafting, currently patient is stable. We will continue to monitor the patient closely and we will continue patient's current management. 9. Deep venous thrombosis and gastrointestinal prophylaxis. MTDD
[2018-05-20 05:29] LABS: Albumin 3.3 g/dL (3.4-4.8); Anion Gap 10 mmol/L (10-20); BUN (Urea Nitrogen) 24 mg/dL (8.4-25.7); BUN/Creatinine Ratio 15.89; Calc. Creatinine Clearance 50 mL/min (70-130); Calcium 8.6 mg/dL (7.8-10.44); Carbon Dioxide 25 mmol/L (23-31); Cardiac Risk 5.3 (Less than 4.5); Chloride 108 mmol/L (98-107); Cholesterol 126 mg/dl (< 200 Desired); Estimated GFR-MDRD 45; Glucose 93 mg/dL (83-110); HDL Cholesterol 24 mg/dL (>60 Neg Risk); LDL Cholesterol, Calculated 69 mg/dL; Phosphorus 3.2 mg/dL (2.3-4.7); Potassium 3.8 mmol/L (3.5-5.1); Sodium 139 mmol/L (136-145); Triglycerides 165 mg/dL (Less than 150)
[2018-05-20 05:33] LABS: #Basophils 0.1 thou/uL (0.0-0.2); #Eosinphils 0.4 thou/uL (0.0-0.7); #Monocytes 1.3 thou/uL (0.11-0.59); %Basophils 0.9 % (0.0-1.0); %Lymphocytes 22.3 % (21.0-51.0); %Monocytes 14.6 % (0.0-10.0); %Neutrophils 57.1 % (42.0-75.0); Hemoglobin 13.3 g/dL (14.0-18.0); Mean Corpuscular HGB CONC 32.4 g/dL (32.0-36.0); Mean Corpuscular Hemoglobin 28.9 pg (27.0-31.0); Mean Corpuscular Volume 89.3 fL (78.0-98.0); Platelet Count 244 thou/uL (130-400); RBC Distribution Width 13.4 % (11.5-14.5); Red Blood Cell (RBC) Count 4.59 mill/uL (4.70-6.10); White Blood Cell (WBC) Count 8.7 thou/uL (4.8-10.8)
[2018-05-20] MEDS: Enoxaparin Sodium 30 MG/0.3 ML SYRINGE SC SCH (08:43)
[2018-05-20] MEDS ORDERED: Prevnar 13-Val Conj/PF 0.5 ML SYRINGE IM ONE (09:00)
[2018-05-20] MEDS ORDERED: Aspirin 81 mg Enteric Coated Tablet PO SCH ×2 (09:00→14:21)
[2018-05-20] MEDS ORDERED: Morphine 2 MG/ML SYRINGE SLOW IVP PRN (10:09)
[2018-05-20] MEDS: Famotidine 20 MG TAB PO SCH (11:08)
[2018-05-20] MEDS: Finasteride 5 MG TAB PO SCH (11:08)
[2018-05-20] MEDS: Clopidogrel Bisulfate 75 MG TAB PO SCH (11:08)
[2018-05-20] MEDS: Metoprolol Tartrate 25 MG TAB PO SCH ×2 (11:09→20:21)
[2018-05-20] MEDS: Cyclobenzaprine 10 MG TAB PO PRN (12:19)
--- NOTE | 2018-05-20 14:22 | MRI ---
MRI BRAIN NONCONTRAST: DATE: 05/20/18 HISTORY: 77-year-old male with TIA: dysarthria and left facial drooping. COMPARISON: MRI of 04/20/08. FINDINGS: There is no restricted diffusion to indicate any acute infarction. Numerous small and tiny T2 hyperin tense focal lesions in the bilateral basal ganglia, internal and external capsules, and caudate nucle i. This represents a combination of dilated Virchow-Jey perivascular spaces, and multiple old lacun ar infarctions. There is hemosiderin staining of some of these, left greater than right, indicating p rior hemorrhagic components of these old lacunar infarctions. There is associated ex vacuo dilation o f the left frontal horn. There has been interval increase in the number of these lacunar infarctions in the bilateral basal ganglia compared to 04/20/08. There has been interval increase in size of an old infarction involving cortex and adjacent subcortic al and deep white matter in the left parietal region, indicating additional infarction(s) superimpose d on the previous infarction. This is contiguous with an array of small and tiny T2 hyperintensities in the left paramedian centrum semiovale, suggestive of numerous tiny watershed distribution infarcti ons. There is a similar but milder such distribution on the contralateral right centrum semiovale. This is contiguous with an old right upper frontal deep white matter region of encephalomalacia and gliosis consistent with another old infarction. No obstructive hydrocephalus. There is diffuse brain parenchymal volume loss, which is somewhat worse on the current MRI compared to the previous. There is a new finding of bilateral mastoid effusions. No evidence of acute intra-axial hemorrhage. No mass effect, midline shift, or extra-axial fluid bertrand ection. IMPRESSION: 1. No acute intracranial findings. 2. 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 3. Old left parietal infarction. 4. Old right upper frontal infarction, mostly involving white matter. 5. Evidence for watershed zone old infarctions between the anterior cerebral artery and middle cereb ral artery territories bilaterally. 6. Diffuse brain parenchymal involutional changes and chronic ischemic white matter changes. 7. Bilateral mastoid effusions. ANCELMO Hernandez POS: [facility]
--- NOTE | 2018-05-20 14:24 | PDOC.PN ---
- Subjective Encounter Start Date: 05/20/18 Encounter Start Time: 14:23 Subjective: c/o back spasms and leg pain -: o/w no new complaints - Objective Resuscitation Status: Resuscitation Status FULL:Full Resuscitation MAR Reviewed: Yes Vital Signs & Weight: Vital Signs (12 hours) Temp Pulse Pulse Pulse Resp BP BP 05/20/18 11:57 98.6 F 71 20 05/20/18 09:02 66 66 134/63 139/92 H 05/20/18 08:40 05/20/18 08:00 99 F 66 20 05/20/18 04:00 98.3 F 70 19 BP Pulse Ox 05/20/18 11:57 165/89 H 92 L 05/20/18 09:02 05/20/18 08:40 92 L 05/20/18 08:00 139/65 92 L 05/20/18 04:00 125/28 L 94 L Weight Weight 188 lb I&O: 05/19/18 05/20/18 05/21/18 06:59 06:59 06:59 Intake Total 25 Output Total 300 Balance -275 Result Diagrams: 05/20/18 05:02 05/20/18 05:02 Additional Labs: Accuchecks 05/20/18 05/19/18 12:05 18:05 POC Glucose 112 H 81 Laboratory Tests 03/30/18 05/19/18 05/19/18 05:00 18:15 18:15 Creatinine 1.07 1.57 H Troponin I 0.068 H Triglycerides Cholesterol LDL Cholesterol, Calc HDL Cholesterol 05/19/18 05/20/18 05/20/18 22:12 00:21 05:02 Creatinine 1.51 H Troponin I 0.070 H 0.078 H Triglycerides 165 H Cholesterol 126 LDL Cholesterol, Calc 69 HDL Cholesterol 24 Radiology Reviewed by me: Yes (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.nothing acute) Phys Exam - Physical Examination Constitutional: NAD HEENT: PERRLA, moist MMs, sclera anicteric, oral pharynx no lesions Neck: no nodes, no JVD, supple, full ROM Respiratory: no wheezing, no rales, no rhonchi Cardiovascular: RRR, no significant murmur Gastrointestinal: soft, non-tender, no distention, positive bowel sounds Musculoskeletal: no edema, pulses present slurred speech and left facial droop Psychiatric: normal affect, A&O x 3 Skin: no rash Dx/Plan (1) Slurred speech Code(s): R47.81 - SLURRED SPEECH Status: Acute (2) Facial droop Code(s): R29.810 - FACIAL WEAKNESS Status: Acute (3) GERARD (acute kidney injury) Code(s): N17.9 - ACUTE KIDNEY FAILURE, UNSPECIFIED Status: Acute Comment: Improving (4) BPH (benign prostatic hyperplasia) Code(s): N40.0 - BENIGN PROSTATIC HYPERPLASIA WITHOUT LOWER URINRY TRACT SYMP Status: Chronic Qualifiers: Lower urinary tract symptom presence: symptoms present Lower urinary tract symptom detail: incomplete bladder emptying Qualified Code(s): N40.1 - Benign prostatic hyperplasia with lower urinary tract symptoms; R39.14 - Feeling of incomplete bladder emptying Comment: Continue Proscar and Flomax (5) CAD (coronary artery disease) Code(s): I25.10 - ATHSCL HEART DISEASE OF [place] CORONARY ARTERY W/O ANG PCTRS Status: Chronic Qualifiers: Coronary Disease-Associated Artery/Lesion type: unspecified vessel or lesion type [place] vs. transplanted heart: [place] heart Associated angina: without angina Qualified Code(s): I25.10 - Atherosclerotic heart disease of [place] coronary artery without angina pectoris (6) CKD (chronic kidney disease) stage 3, GFR 30-59 ml/min Code(s): N18.3 - CHRONIC KIDNEY DISEASE, STAGE 3 (MODERATE) Status: Chronic Comment: Improved, avoid nephrotoxic meds and limit contrast exposure (7) Chronic diastolic CHF (congestive heart failure) Code(s): I50.32 - CHRONIC DIASTOLIC (CONGESTIVE) HEART FAILURE Status: Chronic (8) Chronic low back pain Code(s): M54.5 - LOW BACK PAIN; G89.29 - OTHER CHRONIC PAIN Status: Chronic Qualifiers: Back pain laterality: unspecified Sciatica presence: without sciatica Qualified Code(s): M54.5 - Low back pain; G89.29 - Other chronic pain (9) GERD (gastroesophageal reflux disease) Code(s): K21.9 - GASTRO-ESOPHAGEAL REFLUX DISEASE WITHOUT ESOPHAGITIS Status: Chronic Qualifiers: Esophagitis presence: without esophagitis Qualified Code(s): K21.9 - Gastro -esophageal reflux disease without esophagitis - Plan PT/OT, incentive spirometry, out of bed/ambulate, DVT proph w/SCDs mo Acute CVA on MRI.increase ASA to 325 and cont plavix & statin -: NS evela for severe carotid art stenosis.seems inoperable -: HD stable.start IVF as NPO per RECORDS MANAGEMENT ENGINEER -: OT,PT ,RECORDS MANAGEMENT ENGINEER.DC back to [facility] soon if no plans for SX -: reconcile home meds.AM labs * . Review of Systems - Review of Systems Other: limited due to facial droop.some somnolence and confusion - Medications/Allergies Allergies/Adverse Reactions: Allergies Allergy/AdvReac Type Severity Reaction Status Date / Time No Known Drug Allergies Allergy Verified 01/28/18 04:30 Medications: Current Medications Acetaminophen (Tylenol) 650 mg PO Q4H PRN PRN Reason: Headache/Fever/Mild Pain (1-3) Hydrocodone Bitart/Acetaminophen ([place] 5/325) 1 tab PO Q4H PRN PRN Reason: Moderate Pain (4-6) Aspirin (Ecotrin) 325 mg PO DAILY [facility] Atorvastatin Calcium (Lipitor) 80 mg PO HS [facility] Bisacodyl (Dulcolax) 10 mg PO DAILYPRN PRN PRN Reason: Constipation Clopidogrel Bisulfate (Plavix) 75 mg PO DAILY [facility] Last Admin: 05/20/18 11:08 Dose: 75 mg Cyclobenzaprine HCl (Flexeril) 10 mg PO TID PRN PRN Reason: Muscle Spasm Last Admin: 05/20/18 12:19 Dose: 10 mg Enoxaparin Sodium (Lovenox) 30 mg SC 0900 [facility] Last Admin: 05/20/18 08:43 Dose: 30 mg Famotidine (Pepcid) 20 mg PO DAILY [facility] Last Admin: 05/20/18 11:08 Dose: 20 mg Finasteride (Proscar) 5 mg PO DAILY [facility] Last Admin: 05/20/18 11:08 Dose: 5 mg Hydralazine HCl (Apresoline) 10 mg SLOW IVP Q4H PRN PRN Reason: BP > 220/110 Labetalol HCl (Normodyne) 20 mg SLOW IVP Q1H PRN PRN Reason: BP > 220/110 Metoprolol Tartrate (Lopressor) 25 mg PO BID [facility] Last Admin: 05/20/18 11:09 Dose: 25 mg Morphine Sulfate (Morphine) 2 mg SLOW IVP Q4H PRN PRN Reason: Pain Last Admin: 05/20/18 10:25 Dose: 2 mg Ondansetron HCl (Zofran Odt) 4 mg PO Q6H PRN PRN Reason: Nausea/Vomiting Ondansetron HCl (Zofran) 4 mg IVP Q6H PRN PRN Reason: Nausea/Vomiting Sertraline HCl (Zoloft) 25 mg PO DAILY [facility] Last Admin: 05/20/18 11:09 Dose: 25 mg Sodium Chloride (Flush - Normal Saline) 10 ml IVF Q12HR PRN PRN Reason: Saline Flush Sodium Chloride (Flush - Normal Saline) 10 ml IVF PRN PRN PRN Reason: Saline Flush Last Admin: 05/20/18 00:57 Dose: 10 ml Sodium Chloride (Flush - Normal Saline) 10 ml IVF PRN PRN PRN Reason: Saline Flush Tamsulosin HCl (Flomax) 0.4 mg PO HS [facility]
[2018-05-20] MEDS: Dextrose 5 %-0.45 % NaCl 1,000 ML IV SCH (14:57)
[2018-05-20] MEDS ORDERED: predniSONE 20 MG TAB PO SCH (16:30)
[2018-05-20] MEDS: HYDROcodone/Acetaminophen 5/325 mg Tablet PO PRN (20:20)
[2018-05-20] MEDS: Atorvastatin Calcium 40 MG TAB PO SCH (20:20)
[2018-05-20] MEDS: Tamsulosin HCl 0.4 MG CAP PO SCH (20:21)
[2018-05-21] MEDS: Dextrose 5 %-0.45 % NaCl 1,000 ML IV SCH (03:50)
[2018-05-21] MEDS: Cyclobenzaprine 10 MG TAB PO PRN (03:51)
[2018-05-21 05:38] LABS: Anion Gap 11 mmol/L (10-20); BUN (Urea Nitrogen) 23 mg/dL (8.4-25.7); Calc. Creatinine Clearance 51 mL/min (70-130); Calcium 8.7 mg/dL (7.8-10.44); Carbon Dioxide 22 mmol/L (23-31); Chloride 109 mmol/L (98-107); Estimated GFR-MDRD 46; Glucose 125 mg/dL (83-110); Potassium 4.4 mmol/L (3.5-5.1); Sodium 138 mmol/L (136-145)
[2018-05-21] MEDS: HYDROcodone/Acetaminophen 5/325 mg Tablet PO PRN ×2 (10:18→21:42)
[2018-05-21] MEDS: Clopidogrel Bisulfate 75 MG TAB PO SCH (10:19)
[2018-05-21] MEDS: Enoxaparin Sodium 30 MG/0.3 ML SYRINGE SC SCH (10:19)
[2018-05-21] MEDS: Aspirin 81 mg Enteric Coated Tablet PO SCH (10:19)
[2018-05-21] MEDS: Famotidine 20 MG TAB PO SCH (10:19)
[2018-05-21] MEDS: Metoprolol Tartrate 25 MG TAB PO SCH ×2 (10:20→21:42)
[2018-05-21] MEDS: Finasteride 5 MG TAB PO SCH (10:20)
[2018-05-21] MEDS: predniSONE 20 MG TAB PO SCH (10:20)
--- NOTE | 2018-05-21 14:35 | PDOC.PN ---
- Subjective Encounter Start Date: 05/21/18 Encounter Start Time: 14:33 Subjective: reports feeling OK but very weak. -: Discussed w TACTICAL AIR CONTROL PARTY MANAGER-cleared for pureed diet this morning -: MRI results notified to pt.Neurology recs notified - Objective Resuscitation Status: Resuscitation Status FULL:Full Resuscitation MAR Reviewed: Yes Vital Signs & Weight: Vital Signs (12 hours) Temp Pulse Pulse Pulse Resp BP BP 05/21/18 12:00 98.7 F 60 20 05/21/18 10:38 64 63 145/65 H 141/65 H 05/21/18 07:54 97.4 F L 61 16 05/21/18 04:47 98.2 F 64 18 BP Pulse Ox 05/21/18 12:00 144/65 H 95 05/21/18 10:38 05/21/18 07:54 143/67 H 93 L 05/21/18 04:47 133/63 93 L Weight Weight 188 lb I&O: 05/20/18 05/21/18 05/22/18 06:59 06:59 06:59 Intake Total 100 Output Total 450 Balance -350 Result Diagrams: 05/20/18 05:02 05/21/18 05:07 Additional Labs: Accuchecks 05/21/18 05/21/18 05/21/18 11:12 05:23 01:18 POC Glucose 131 H 125 H 129 H 05/20/18 18:02 POC Glucose 94 Laboratory Tests 05/19/18 05/20/18 05/21/18 18:15 05:02 05:07 Creatinine 1.57 H 1.51 H 1.48 H Phys Exam - Physical Examination Constitutional: NAD HEENT: PERRLA, moist MMs, sclera anicteric, oral pharynx no lesions Neck: no nodes, no JVD, supple, full ROM Respiratory: no wheezing, no rales, no rhonchi, clear to auscultation bilateral Cardiovascular: RRR, no significant murmur Gastrointestinal: soft, non-tender, no distention, positive bowel sounds Musculoskeletal: no edema, pulses present left facial droop,slurred speech Psychiatric: normal affect, A&O x 3 Skin: no rash Dx/Plan (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 Status: Acute (2) Facial droop Code(s): R29.810 - FACIAL WEAKNESS Status: Acute Comment: Amki's Palsy .Discussed w Neurology Clinical coordinator and Dr López (3) Slurred speech Code(s): R47.81 - SLURRED SPEECH Status: Acute (4) GERARD (acute kidney injury) Code(s): N17.9 - ACUTE KIDNEY FAILURE, UNSPECIFIED Status: Acute Comment: Improving (5) BPH (benign prostatic hyperplasia) Code(s): N40.0 - BENIGN PROSTATIC HYPERPLASIA WITHOUT LOWER URINRY TRACT SYMP Status: Chronic Qualifiers: Lower urinary tract symptom presence: symptoms present Lower urinary tract symptom detail: incomplete bladder emptying Qualified Code(s): N40.1 - Benign prostatic hyperplasia with lower urinary tract symptoms; R39.14 - Feeling of incomplete bladder emptying Comment: Continue Proscar and Flomax (6) CAD (coronary artery disease) Code(s): I25.10 - ATHSCL HEART DISEASE OF [place] CORONARY ARTERY W/O ANG PCTRS Status: Chronic Qualifiers: Coronary Disease-Associated Artery/Lesion type: unspecified vessel or lesion type [place] vs. transplanted heart: [place] heart Associated angina: without angina Qualified Code(s): I25.10 - Atherosclerotic heart disease of [place] coronary artery without angina pectoris (7) CKD (chronic kidney disease) stage 3, GFR 30-59 ml/min Code(s): N18.3 - CHRONIC KIDNEY DISEASE, STAGE 3 (MODERATE) Status: Chronic Comment: Improved, avoid nephrotoxic meds and limit contrast exposure (8) Chronic diastolic CHF (congestive heart failure) Code(s): I50.32 - CHRONIC DIASTOLIC (CONGESTIVE) HEART FAILURE Status: Chronic (9) Chronic low back pain Code(s): M54.5 - LOW BACK PAIN; G89.29 - OTHER CHRONIC PAIN Status: Chronic Qualifiers: Back pain laterality: unspecified Sciatica presence: without sciatica Qualified Code(s): M54.5 - Low back pain; G89.29 - Other chronic pain (10) GERD (gastroesophageal reflux disease) Code(s): K21.9 - GASTRO-ESOPHAGEAL REFLUX DISEASE WITHOUT ESOPHAGITIS Status: Chronic Qualifiers: Esophagitis presence: without esophagitis Qualified Code(s): K21.9 - Gastro -esophageal reflux disease without esophagitis - Plan PT/OT, speech therapy, out of bed/ambulate, DVT proph w/SCDs Satrted on Po Prednisone per neurology recs yesterday for possible Maki's -: cont ASA,Plavix,jefferson. NS eval pending for abnl CTA results -: HD stable. -: Renal Fx imrpoving. Advance diet and stop IVF. -: SNIF eval per family request.am labs * . Review of Systems - Review of Systems Constitutional: weakness, malaise Cardiovascular: negative: chest pain, palpitations, orthopnea, paroxysmal nocturnal dyspnea, edema, light headedness, other Gastrointestinal: negative: Nausea, Vomiting, Abdominal Pain, Diarrhea, Constipation, Melena, Hematochezia, Other Genitourinary: negative: Dysuria, Frequency, Incontinence, Hematuria, Retention , Other Neurological: negative: Weakness, Numbness, Incoordination, Change in Speech, Confusion, Seizures, Other - Medications/Allergies Allergies/Adverse Reactions: Allergies Allergy/AdvReac Type Severity Reaction Status Date / Time No Known Drug Allergies Allergy Verified 01/28/18 04:30 Medications: Current Medications Acetaminophen (Tylenol) 650 mg PO Q4H PRN PRN Reason: Headache/Fever/Mild Pain (1-3) Hydrocodone Bitart/Acetaminophen ([place] 5/325) 1 tab PO Q4H PRN PRN Reason: Moderate Pain (4-6) Last Admin: 05/21/18 10:18 Dose: 1 tab Aspirin (Ecotrin) 81 mg PO DAILY [facility] Last Admin: 05/21/18 10:19 Dose: 81 mg Atorvastatin Calcium (Lipitor) 80 mg PO HS [facility] Last Admin: 05/20/18 20:20 Dose: 80 mg Bisacodyl (Dulcolax) 10 mg PO DAILYPRN PRN PRN Reason: Constipation Clopidogrel Bisulfate (Plavix) 75 mg PO DAILY [facility] Last Admin: 05/21/18 10:19 Dose: 75 mg Cyclobenzaprine HCl (Flexeril) 10 mg PO TID PRN PRN Reason: Muscle Spasm Last Admin: 05/21/18 03:51 Dose: 10 mg Enoxaparin Sodium (Lovenox) 30 mg SC 0900 [facility] Last Admin: 05/21/18 10:19 Dose: 30 mg Famotidine (Pepcid) 20 mg PO DAILY [facility] Last Admin: 05/21/18 10:19 Dose: 20 mg Finasteride (Proscar) 5 mg PO DAILY [facility] Last Admin: 05/21/18 10:20 Dose: 5 mg Hydralazine HCl (Apresoline) 10 mg SLOW IVP Q4H PRN PRN Reason: BP > 220/110 Labetalol HCl (Normodyne) 20 mg SLOW IVP Q1H PRN PRN Reason: BP > 220/110 Metoprolol Tartrate (Lopressor) 25 mg PO BID [facility] Last Admin: 05/21/18 10:20 Dose: 25 mg Morphine Sulfate (Morphine) 2 mg SLOW IVP Q4H PRN PRN Reason: Pain Last Admin: 05/20/18 10:25 Dose: 2 mg Ondansetron HCl (Zofran Odt) 4 mg PO Q6H PRN PRN Reason: Nausea/Vomiting Ondansetron HCl (Zofran) 4 mg IVP Q6H PRN PRN Reason: Nausea/Vomiting Prednisone (Prednisone) 20 mg PO QA-[facility] Stop: 05/27/18 08:01 Last Admin: 05/21/18 10:20 Dose: 20 mg Sertraline HCl (Zoloft) 25 mg PO DAILY [facility] Last Admin: 05/21/18 10:19 Dose: 25 mg Sodium Chloride (Flush - Normal Saline) 10 ml IVF Q12HR PRN PRN Reason: Saline Flush Sodium Chloride (Flush - Normal Saline) 10 ml IVF PRN PRN PRN Reason: Saline Flush Last Admin: 05/20/18 00:57 Dose: 10 ml Tamsulosin HCl (Flomax) 0.4 mg PO HS [facility] Last Admin: 05/20/18 20:21 Dose: 0.4 mg
--- NOTE | 2018-05-21 20:24 | CON-2 ---
DATE OF CONSULTATION: 05/21/2018 Damian Rahman PA-C, dictating for Hitesh Agnulo MD. This is a 30-minute initial patient evaluation in which greater than 50% of the exam was spent in cou nseling and coordinating patient's care. Remainder of the exam was spent reviewing patient's medical records and appropriate imaging studies. CHIEF COMPLAINT: Sudden onset of left facial droop with multiple areas of artery stenosis. HISTORY OF PRESENT ILLNESS: Mr. Reyna is a 77-year-old male, who presents to [facility] nursing [facility] in [place] for the above complaints. He is not a wonderful histo lory, but is able to tell me that the reason why he is here for a sudden onset of left facial droopin g. He also had some slurred speech. He has had this in the past according to the patient, but this however did prompt him to present to the hospital. He does have a history of hypertension and low ba ck pain. A CT angiogram was performed that did not show any evidence of aneurysm. His head CT was n egative for hemorrhage. His CT angiogram did show some stenosis of the right vertebral artery as wel l as in the left M1. It is unclear if the patient was on anticoagulants prior to his hospitalization , but is now on Lovenox, aspirin 81 mg and Plavix. PHYSICAL EXAMINATION: The patient is awake, alert, and appropriate. GCS is 15. He is oriented to p erson, place, and time. He does have some slurred speech and left facial drooping, but has full stre ngth in the bilateral upper and bilateral lower extremities. He has no pronator drift. 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 He has no tongue deviation or fasciculations of the tongue. Pupils are equal, round, and reactive bilaterally. He is able to swallow. He is eating now, pudding in bed. IMPRESSION: 1. Status post probable transient ischemic attack with left facial drooping and slurred speech. 2. 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 PLAN: I have discussed the patient's case and imaging with Dr. Angulo. At this time, the patient is not a neurosurgical candidate. We do suggest however maximizing conservative medical therapy includ ing dual antiplatelet therapy including aspirin and Plavix. There is no need for any type of neurosu rgical followup. Again, there is not a surgical issue here. Please call with any change in the josh ent's neurologic status; otherwise, Neurosurgery will sign off.
[2018-05-21] MEDS: Atorvastatin Calcium 40 MG TAB PO SCH (21:42)
[2018-05-21] MEDS: Tamsulosin HCl 0.4 MG CAP PO SCH (21:42)
[2018-05-22 05:39] LABS: #Basophils 0.1 thou/uL (0.0-0.2); #Eosinphils 0.3 thou/uL (0.0-0.7); #Lymphocytes 2.5 thou/uL (1.20-3.40); #Monocytes 1.1 thou/uL (0.11-0.59); #Neutrophils 5.8 thou/uL (1.40-6.50); %Basophils 0.8 % (0.0-1.0); %Eosinophils 2.6 % (0.0-10.0); %Lymphocytes 25.7 % (21.0-51.0); %Monocytes 11.6 % (0.0-10.0); %Neutrophils 59.3 % (42.0-75.0); Hemoglobin 13.6 g/dL (14.0-18.0); Mean Corpuscular HGB CONC 32.9 g/dL (32.0-36.0); Mean Corpuscular Hemoglobin 29.5 pg (27.0-31.0); Mean Corpuscular Volume 89.7 fL (78.0-98.0); Mean Platelet Volume 6.9 fL (7.4-10.4); Platelet Count 247 thou/uL (130-400); RBC Distribution Width 13.3 % (11.5-14.5); Red Blood Cell (RBC) Count 4.63 mill/uL (4.70-6.10); White Blood Cell (WBC) Count 9.8 thou/uL (4.8-10.8)
[2018-05-22 05:47] LABS: Anion Gap 11 mmol/L (10-20); BUN (Urea Nitrogen) 19 mg/dL (8.4-25.7); Calc. Creatinine Clearance 60 mL/min (70-130); Calcium 8.7 mg/dL (7.8-10.44); Carbon Dioxide 19 mmol/L (23-31); Chloride 110 mmol/L (98-107); Estimated GFR-MDRD 55; Glucose 85 mg/dL (83-110); Potassium 3.9 mmol/L (3.5-5.1); Sodium 136 mmol/L (136-145)
[2018-05-22] MEDS: Aspirin 81 mg Enteric Coated Tablet PO SCH (09:52)
[2018-05-22] MEDS: Famotidine 20 MG TAB PO SCH (09:52)
[2018-05-22] MEDS: Finasteride 5 MG TAB PO SCH (09:52)
[2018-05-22] MEDS: Metoprolol Tartrate 25 MG TAB PO SCH (09:52)
[2018-05-22] MEDS: Clopidogrel Bisulfate 75 MG TAB PO SCH (09:52)
[2018-05-22] MEDS: predniSONE 20 MG TAB PO SCH (09:53)
[2018-05-22] MEDS: Enoxaparin Sodium 30 MG/0.3 ML SYRINGE SC SCH (09:53)
[2018-05-22 11:51] VITALS: BP 149/68; TEMP 97.2
--- NOTE | 2018-05-22 23:17 | DIS ---
DATE OF ADMISSION: 05/20/2018 DATE OF DISCHARGE: 05/22/2018 CONDITION AT THE TIME OF DISCHARGE: Stable and improved. DISCHARGE DISPOSITION: [facility] for rehabilitation. PRIMARY CARE PHYSICIAN: BLAINE Harris DISCHARGE DIAGNOSES: 1. 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 2. Acute renal insufficiency, resolved. 3. Hypertension. 4. Chronic low back pain. 5. Benign prostatic hypertrophy. 6. Dyslipidemia. 7. History of chronic congestive heart failure. 8. Multiple artery stenosis including the left M1 segment in the right vertebral artery stenosis. DISCHARGE MEDICATIONS: New medications; prednisone 20 mg daily for 7 more days, aspirin 81 mg daily. Resume home medications are as follows; Lipitor 80 mg daily, Plavix 75 mg daily, Proscar 5 mg daily , metoprolol tartrate 25 mg p.o. b.i.d., gabapentin 300 b.i.d. and 600 at night, Protonix 20 mg daily , Zoloft 25 mg daily, Flomax 0.4 mg daily, Zanaflex 4 mg p.o. 8 hours p.r.n. and tramadol b.i.d. p.r. n. INHOUSE CONSULTATIONS: Neurology, Dr. López and Neurosurgery, Dr. Angulo. PROCEDURES DONE IN THE HOSPITAL: 1. CT scan of the brain upon presentation, which is negative for any acute infarction. 2. CT angiogram of the head and neck, which shows multiple areas of stenosis including the left inte rnal carotid artery as well as atherosclerosis of both carotid arteries without high grade stenosis. Moderate stenosis in the right internal carotid artery and high grade stenosis involving the proxima l left P1 segment. PROCEDURES: 1. MRI of the brain, it shows evidence of multiple old infarction without any acute infarction. He has multiple old lacunar infarction in the bilateral corpus striatum as well as old left parietal inf arction and old right upper frontal infarction and areas of watershed zone old infarctions with chron ic ischemic white matter changes. 2. Transthoracic echocardiogram which shows EF of 55%-60% and moderate to severely dilated left atri um. Mild aortic stenosis with peak gradient of 25 mmHg. HISTORY OF PRESENTING ILLNESS: Mr. Reyna is a 77-year-old male with past medical history of hyperten natasha, dyslipidemia, and possible stroke as demonstrated by his MRI who presented to the emergency alisia m with complaints of slurred speech and facial droop. He was over at assisted living side of [facility] when the nurse over there noticed a left facial droop or slurring of the speech. He was br ought into the emergency room and initial workup showed no active stroke with multilevel stenosis in the CT angio. He was recently admitted last month for Escherichia coli urinary tract infection as we ll. He has failed modified barium swallow as an outpatient. He was admitted with presumptive diagno sis of CVA and MRI and neuro consults were ordered. Neurosurgery was also consulted with regards to stenosis. He was found to have mild kidney insufficiency with creatinine of 1.57 upon presentation. Please see admission history and physical for further details. HOSPITAL COURSE: The patient had an MRI done which did not show any active stroke. This was discuss ed with Dr. López who was director of instruction for Neurology. His recommendations were that this most likely is Shelley's palsy and the patient was started on prednisone with minimal improvement. He will continue t his for a few more days and follow up with outpatient Neurology. With regards to his high grade stenosis, Neurosurgery was consulted and their recommendation was that the patient is not a neurosurgical candidate, but he should be on dual antiplatelet therapy. He was already on Plavix, so he was started on low dose aspirin. He was continued on statin as well. As of this morning, the patient is back to baseline and rehabilitation was arranged for him and back in [facility]. He was seen by speech therapist in the hospital and was cleared for pureed soft diet which he tolerated very well. He worked with OT, PT in here as well. He is awake, alert, orie nted at the time of discharge and is hemodynamically stable. No further medical intervention is nece ssary for him to stay inpatient. He was seen and examined prior to discharge. PHYSICAL EXAMINATION: VITAL SIGNS: This morning, 90s, temperature 97.2, pulse of 61, respirations 16, satting 94% on room air, blood pressure 149/68. GENERAL APPEARANCE: No acute distress. HEENT: He still has a left-sided facial droop and some weakness of the left eye muscle and facial mu scle. Muscle strength is 4/5 in all 4 extremities. CHEST: Clear to auscultation bilaterally. Rate and rhythm is regular. Discharge plan was discussed with the patient. His family was notified by the immigration case manager, Ms. Renea Carcamo who is the relative and POA of the patient. Total time spent 32 minutes.
--- NOTE | 2018-06-01 16:52 | EKG ---
Test Reason : Blood Pressure : / mmHG Vent. Rate : 061 BPM Atrial Rate : 061 BPM P-R Int : 162 ms QRS Dur : 100 ms QT Int : 494 ms P-R-T Axes : 000 -10 204 degrees QTc Int : 497 ms Normal sinus rhythm Septal infarct , age undetermined T wave abnormality, consider inferior ischemia T wave abnormality, consider anterolateral ischemia Lead V2/V3 reversal in initial EKG today Abnormal ECG Confirmed by KYE GARCIA DO ([id number]), food editor SONIA JAMA ([id number]) on 06/01/2018 4:52:11 PM Referred By: Confirmed By:KYE GARCIA DO
== END 2018-05-22 13:15 | DRG 74 ==
LOC: ERS 17:57 → 2SE 19:40
PROVIDERS: ADMIT Family Medicine; ATTEND Family Medicine
DX: G51.0 Bell's palsy (principal); N17.9 Acute kidney failure, unspecified; I13.0 Hypertensive heart and chronic kidney disease with heart failure and stage 1 through stage 4 chronic kidney disease, or unspecified chronic kidney disease; I50.32 Chronic diastolic (congestive) heart failure; I65.01 Occlusion and stenosis of right vertebral artery; R13.10 Dysphagia, unspecified; R47.81 Slurred speech; R40.2412 Glasgow coma scale score 13-15, at arrival to emergency department; R29.702 NIHSS score 2; E78.5 Hyperlipidemia, unspecified; N18.3 Chronic kidney disease, stage 3 (moderate); E86.0 Dehydration; I25.10 Atherosclerotic heart disease of native coronary artery without angina pectoris; K21.9 Gastro-esophageal reflux disease without esophagitis; M54.5 Low back pain; G89.29 Other chronic pain; Z95.1 Presence of aortocoronary bypass graft; N40.0 Benign prostatic hyperplasia without lower urinary tract symptoms; Z86.73 Personal history of transient ischemic attack (TIA), and cerebral infarction without residual deficits; Z79.02 Long term (current) use of antithrombotics/antiplatelets; Z79.82 Long term (current) use of aspirin; Z79.891 Long term (current) use of opiate analgesic
CPT/HCPCS: 36415; 36416; 70450; 70496; 70498; 70551; 71045; 80048; 80053; 80061; 80069; 81003; 82553; 84484; 85025; 85610; 85730; 90471; 90670; 93005; 93306; G0009; G8978-GP-CK; G8979-GP-CJ; G8987-GO-CL; G8988-GO-CK; G8996-GN-CL; G8996-GN-CM; G8997-GN-CK; J1650; J2270; J7506

== ENCOUNTER 2018-05-26 10:17 | Outpatient (CLI) | payer MEDICARE ==
--- NOTE | 2018-05-26 12:11 | ULT ---
BILATERAL RENAL ULTRASOUND: Date: 05/26/18 HISTORY: UTI. FINDINGS: The right kidney measures 9.1 cm in length. The left kidney measures 8.3 cm in length. No focal mass or hydronephrosis is seen on either side. No shadowing calculi are identified. Cortical echogenicity and thickness are normal. There is a diverticulum arising from the urinary bladder inferiorly on the left. IMPRESSION: 1. Normal renal ultrasound. 2. Urinary bladder diverticulum. POS: KIMI
== END 2018-05-26 10:18 | disposition home or self-care (01) ==
LOC: BICULT 10:17
PROVIDERS: ATTEND Urology
DX: N39.0 Urinary tract infection, site not specified (principal); N32.3 Diverticulum of bladder
CPT/HCPCS: 76770

== ENCOUNTER 2018-08-10 06:32 | Outpatient (CLI) | payer MEDICARE ==
[2018-08-10 15:53] LABS: Hemoglobin 14.7 g/dL (14.0-18.0); Mean Corpuscular HGB CONC 33.1 g/dL (32.0-36.0); Mean Corpuscular Hemoglobin 30.8 pg (27.0-31.0); Mean Corpuscular Volume 92.9 fL (78.0-98.0); Mean Platelet Volume 7.1 fL (7.4-10.4); Platelet Count 192 thou/uL (130-400); RBC Distribution Width 14.6 % (11.5-14.5); Red Blood Cell (RBC) Count 4.79 mill/uL (4.70-6.10); White Blood Cell (WBC) Count 12.3 thou/uL (4.8-10.8)
[2018-08-10 16:13] LABS: Anion Gap 16 mmol/L (10-20); BUN (Urea Nitrogen) 32 mg/dL (8.4-25.7); Calc. Creatinine Clearance 0 mL/min (70-130); Calcium 8.7 mg/dL (7.8-10.44); Carbon Dioxide 22 mmol/L (23-31); Chloride 106 mmol/L (98-107); Estimated GFR-MDRD 44; Glucose 90 mg/dL (83-110); Potassium 3.6 mmol/L (3.5-5.1); Sodium 140 mmol/L (136-145)
== END 2018-08-10 06:33 | disposition home or self-care (01) ==
LOC: LABBT 06:32
PROVIDERS: ATTEND Urology
DX: Z01.818 Encounter for other preprocedural examination (principal); N39.0 Urinary tract infection, site not specified; N40.0 Benign prostatic hyperplasia without lower urinary tract symptoms; R39.14 Feeling of incomplete bladder emptying; N52.9 Male erectile dysfunction, unspecified
CPT/HCPCS: 80048; 81001; 85027; 87086; 93005; 93010

== ENCOUNTER 2018-08-18 09:43 | Day surgery (SDC) | payer MEDICARE ==
[2018-08-10 14:43] VITALS: BMI 35.1
[2018-08-18] MEDS ORDERED: Levofloxacin 500 mg/D5W 100 ml Premix Bag ONE (10:56)
[2018-08-18] MEDS ORDERED: Dexamethasone 4 mg/ml Vial ONE (10:58)
[2018-08-18] MEDS ORDERED: B & O ONE (12:34)
[2018-08-18] MEDS ORDERED: Furosemide 20 MG/2 ML VIAL ONE (12:34)
[2018-08-18] MEDS ORDERED: Fentanyl 100 MCG/2 ML VIAL ONE ×2 (12:41→15:08)
[2018-08-18] MEDS ORDERED: Ondansetron PF 4 MG/2 ML Vial ONE (16:13)
[2018-08-18] MEDS ORDERED: Dexamethasone 20 MG/5 ML VIAL ONE (16:13)
[2018-08-18] MEDS ORDERED: Glycopyrrolate 0.2 MG/ML 5 ML SYRINGE ONE (16:13)
[2018-08-18] MEDS ORDERED: PROPOFOL 200 MG/20 ML VIAL ONE (16:13)
[2018-08-18] MEDS ORDERED: Lidocaine 1% PF 5 ML VIAL ONE (16:13)
[2018-08-18] MEDS ORDERED: Rocuronium Bromide 10 MG/ML (10ML VIAL) ONE (16:13)
--- NOTE | 2018-08-18 17:29 | OP ---
DATE OF PROCEDURE: 08/18/2018 PREOPERATIVE DIAGNOSIS: BPH. POSTOPERATIVE DIAGNOSIS: BPH. PROCEDURE PERFORMED: GreenLight laser vaporization of the prostate with enucleation of lateral lobes using 213,477 joules. DRAINS REMAININ-[place] two-way. ANESTHESIA: General, ETT ESTIMATED BLOOD LOSS: Minimal. COMPLICATIONS: No complications. The lateral lobes were quite obstructing, especially distally. DESCRIPTION OF PROCEDURE: The patient was brought into the room by Anesthesia, laid on the table in supine position. After receiving general anesthetic, his legs were placed in lithotomy position and his perineum was prepped and draped in a sterile fashion. Using the 22.5-[place] cystoscope with 30-degree lens, the urethra was traversed and the bladder was inspected. The ureteral orifices were identified and preserved throughout the case. A power level of 80 was used to bring down scarred bladder neck. The right UO was quite close and had little to no need for taking down the bladder neck lateral to it, but it was elevated such that the elevated contraction could be taken down from his prior procedure. This was done on the patient's left as well preserving the UO at the time and a power level of 180 was used to enucleate the lateral lobes. All the chips were evacuated out. There was a large diverticulum noted and I entered this multiple times to ensure that there was no chips remaining even at the end again and all the debris was washed in and out. When the scope was removed, good stream was noted. Scope was put back in and the bladder was decompressed and hemostasis ensured. Again, a total of 213,477 joules and a 20-[place] catheter was then placed after the cystoscope was removed in its entirety. The patient tolerated the procedure well and was awakened, transferred to the PACU in stable condition. Job ID: [id number] [id number]
== END 2018-08-18 16:35 | disposition home or self-care (01) ==
LOC: SDC 09:43
PROVIDERS: ATTEND Urology
PROC: 0V508ZZ Destruction of Prostate, Via Natural or Artificial Opening Endoscopic (ICD-10-PCS; principal; 2018-08-18)
DX: N40.1 Benign prostatic hyperplasia with lower urinary tract symptoms (principal); R35.0 Frequency of micturition; R39.14 Feeling of incomplete bladder emptying; R35.1 Nocturia; R39.15 Urgency of urination; K21.9 Gastro-esophageal reflux disease without esophagitis; I10 Essential (primary) hypertension; G47.00 Insomnia, unspecified; E78.5 Hyperlipidemia, unspecified; N52.9 Male erectile dysfunction, unspecified; Z86.73 Personal history of transient ischemic attack (TIA), and cerebral infarction without residual deficits; Z79.02 Long term (current) use of antithrombotics/antiplatelets; Z79.82 Long term (current) use of aspirin; Z79.899 Other long term (current) drug therapy; Z95.1 Presence of aortocoronary bypass graft; Z98.890 Other specified postprocedural states
CPT/HCPCS: 88305; J1100; J1940; J1956; J2001; J2405; J2704; J3010; J7620

== ENCOUNTER 2019-04-14 09:00 | Outpatient (CLI) | payer MEDICARE | END 2019-04-14 09:01 | disposition home or self-care (01) | PROVIDERS: ATTEND Family Medicine | DX: R13.12 Dysphagia, oropharyngeal phase (principal); G45.8 Other transient cerebral ischemic attacks and related syndromes; I50.9 Heart failure, unspecified | CPT/HCPCS: 74230 ==

== ENCOUNTER 2019-06-01 09:06 | Outpatient (CLI) | payer MEDICARE ==
--- NOTE | 2019-06-03 11:10 | RAD ---
Modified barium swallow: 06/01/2019 HISTORY: Dysphagia, oropharyngeal phase. Cerebral infarction FINDINGS: Aspiration is noted with thin liquids. There is penetration to the level of the vocal cords with nectar thick liquids and thin liquids. Please see speech pathologist report for full detail and feeding recommendations. IMPRESSION: Penetration and aspiration as detailed above.
== END 2019-06-01 09:07 | disposition home or self-care (01) ==
PROVIDERS: ATTEND Family Medicine
DX: I69.191 Dysphagia following nontraumatic intracerebral hemorrhage (principal); R13.12 Dysphagia, oropharyngeal phase; I63.9 Cerebral infarction, unspecified
CPT/HCPCS: 74230

== ENCOUNTER 2019-06-07 09:47 | Outpatient (CLI) | payer MEDICARE, MEDICAID ==
--- NOTE | 2019-06-07 12:08 | RAD ---
BARIUM SWALLOW ESOPHAGRAM: HISTORY: Oropharyngeal dysphagia. FINDINGS: Exam is limited due to patient's inability to move with instructions and stand. Swallowing was grossly normal. There is unobstructed flow of contrast through the esophagus into the stomach. Tertiary contractions are seen. No obstructing mass, stricture, or diverticulum is seen. A 12 mm tablet passed from the esophagus in to the stomach with minimal stasis in the distal esophagus due to tertiary contractions. IMPRESSION: Presbyesophagus. POS: KIMI
== END 2019-06-07 09:48 | disposition home or self-care (01) ==
LOC: RAD 09:47
PROVIDERS: ATTEND Physician Assistant Medical
DX: R13.12 Dysphagia, oropharyngeal phase (principal); K22.8 Other specified diseases of esophagus
CPT/HCPCS: 74220

== ENCOUNTER 2022-07-08 09:38 | Outpatient (CLI) | payer MEDICARE | END 2022-07-08 09:39 | disposition home or self-care (01) | LOC: RAD 09:38 | PROVIDERS: ATTEND Family Medicine | DX: I69.391 Dysphagia following cerebral infarction (principal); I63.30 Cerebral infarction due to thrombosis of unspecified cerebral artery; R13.12 Dysphagia, oropharyngeal phase; K21.9 Gastro-esophageal reflux disease without esophagitis | CPT/HCPCS: 74230 ==

== ENCOUNTER 2025-01-17 10:34 | Inpatient (IN) | payer MEDICARE ==
[~2025-01-17 10:34] MED LIST changes: -ISOVUE-370 76%-LOCM 1 ML ONE; +Iopamidol-370 76% 500 ML MDV (1 ML CHARGE) ONE
[2025-01-17 11:16] LABS: #Basophils 0.11 10x3/uL (0.0-0.2); #Eosinophils 0.35 10x3/uL (0.0-0.7); #Monocytes 1.49 10x3/uL (0.11-0.59); #Neutrophils 6.36 10x3/uL (1.40-6.50); %Basophils 1.1 % (0.0-1.0); %Eosinophils 3.4 % (0.0-10.0); %Lymphocytes 18.6 % (21.0-51.0); %Monocytes 14.4 % (0.0-10.0); %Neutrophils 61.3 % (42.0-75.0); Hematocrit 39.1 % (42.0-52.0); Hemoglobin 13.3 g/dL (14.0-18.0); Mean Corpuscular Hemoglobin 31.5 pg (27.0-31.0); Mean Corpuscular Volume 92.7 fL (78.0-98.0); Platelet Count 227 10x3/uL (130-400); Red Blood Cell (RBC) Count 4.22 mill/uL (4.70-6.10); White Blood Cell (WBC) Count 10.36 10x3/uL (4.8-10.8)
[2025-01-17 11:36] LABS: ALT (SGPT) 25 U/L (Less than 45); AST (SGOT) 34 U/L (11-34); Albumin 3.3 g/dL (3.1-4.5); Alkaline Phosphatase 100 U/L (40-110); Anion Gap 12 mmol/L (10-20); BUN (Urea Nitrogen) 33 mg/dL (8.4-25.7); Bilirubin, Total 0.5 mg/dL (0.3-1.2); Calc. Creatinine Clearance 0 mL/min (70-130); Calcium 8.5 mg/dL (7.8-10.44); Carbon Dioxide 25 mmol/L (23-31); Chloride 105 mmol/L (98-107); Globulin 3.4 g/dL (2.4-3.5); Glucose 123 mg/dL (83-110); Potassium 3.7 mmol/L (3.5-5.1); Sodium 138 mmol/L (136-145)
[2025-01-17 11:51] LABS: Bacteria/HPF None Seen HPF (None Seen); CAUTI Indications for Culture Acute Hematuria; Glucose, Urine (Dipstick) Normal (Negative); Leukocyte Negative Leu/uL (Negative); Protein, Urine (Dipstick) Negative (Neg-Trace); RBC/HPF 0-3 HPF (0-3); Specific Gravity, Urine 1.011 (1.002-1.036); WBC/HPF 0-3 HPF (0-3)
[2025-01-17 11:52] LABS: Urine Culture Reflex No No
[2025-01-17 12:06] LABS: Troponin I 1.531 ng/mL (< 0.028)
[2025-01-17] MEDS ORDERED: Enoxaparin 80 MG (0.8 mL) SYRINGE ONE (13:31)
[2025-01-17] MEDS ORDERED: Acetaminophen 325 MG TAB PO PRN (14:46)
[2025-01-17] MEDS ORDERED: Ondansetron PF 4 MG/2 ML Vial IVP PRN (14:46)
[2025-01-17 17:32] LABS: Magnesium 2.0 mg/dL (1.6-2.6)
[2025-01-17 18:16] LABS: Troponin I 1.562 ng/mL (< 0.028)
[2025-01-17 20:46] LABS: Troponin I 1.692 ng/mL (< 0.028)
[2025-01-17] MEDS: Gabapentin 300 MG CAP PO SCH (22:54)
[2025-01-18 04:27] LABS: #Basophils 0.10 10x3/uL (0.0-0.2); #Eosinophils 0.34 10x3/uL (0.0-0.7); #Monocytes 1.42 10x3/uL (0.11-0.59); #Neutrophils 5.30 10x3/uL (1.40-6.50); %Basophils 1.1 % (0.0-1.0); %Eosinophils 3.7 % (0.0-10.0); %Lymphocytes 21.1 % (21.0-51.0); %Monocytes 15.4 % (0.0-10.0); %Neutrophils 57.6 % (42.0-75.0); Hematocrit 36.9 % (42.0-52.0); Hemoglobin 12.7 g/dL (14.0-18.0); Mean Corpuscular Hemoglobin 31.8 pg (27.0-31.0); Mean Corpuscular Volume 92.3 fL (78.0-98.0); Platelet Count 226 10x3/uL (130-400); Red Blood Cell (RBC) Count 4.00 mill/uL (4.70-6.10); White Blood Cell (WBC) Count 9.20 10x3/uL (4.8-10.8)
[2025-01-18 05:01] LABS: Anion Gap 13 mmol/L (10-20); BUN (Urea Nitrogen) 33 mg/dL (8.4-25.7); Calc. Creatinine Clearance 36 mL/min (70-130); Calcium 8.2 mg/dL (7.8-10.44); Carbon Dioxide 23 mmol/L (23-31); Chloride 108 mmol/L (98-107); Glucose 84 mg/dL (83-110); Potassium 3.8 mmol/L (3.5-5.1); Sodium 140 mmol/L (136-145)
[2025-01-18 06:31] VITALS: BMI 24.0
[2025-01-18] MEDS: Aspirin 81 mg Enteric Coated Tablet PO SCH (09:04)
[2025-01-18] MEDS: Sertraline 100 MG TAB PO SCH (09:05)
[2025-01-18] MEDS: Finasteride 5 MG TAB PO SCH (09:05)
[2025-01-18] MEDS: Enoxaparin 80 MG (0.8 mL) SYRINGE SC SCH ×2 (10:32→10:36)
[2025-01-18] MEDS: Amiodarone 200 MG TAB PO SCH ×2 (10:36→14:30)
[2025-01-18] MEDS: HYDROcodone/Acetaminophen 5/325 mg Tablet PO PRN (14:29)
[2025-01-18] MEDS ORDERED: Senokot 8.6 MG TAB PO PRN (16:38)
[2025-01-19 04:27] LABS: #Basophils 0.09 10x3/uL (0.0-0.2); #Eosinophils 0.38 10x3/uL (0.0-0.7); #Monocytes 1.22 10x3/uL (0.11-0.59); #Neutrophils 4.11 10x3/uL (1.40-6.50); %Basophils 1.1 % (0.0-1.0); %Eosinophils 4.8 % (0.0-10.0); %Lymphocytes 26.0 % (21.0-51.0); %Monocytes 15.3 % (0.0-10.0); %Neutrophils 51.8 % (42.0-75.0); Hematocrit 38.1 % (42.0-52.0); Hemoglobin 13.0 g/dL (14.0-18.0); Mean Corpuscular Hemoglobin 31.4 pg (27.0-31.0); Mean Corpuscular Volume 92.0 fL (78.0-98.0); Platelet Count 215 10x3/uL (130-400); Red Blood Cell (RBC) Count 4.14 mill/uL (4.70-6.10); White Blood Cell (WBC) Count 7.95 10x3/uL (4.8-10.8)
[2025-01-19 06:07] LABS: Anion Gap 14 mmol/L (10-20); BUN (Urea Nitrogen) 33 mg/dL (8.4-25.7); Calc. Creatinine Clearance 33 mL/min (70-130); Calcium 8.4 mg/dL (7.8-10.44); Carbon Dioxide 21 mmol/L (23-31); Chloride 109 mmol/L (98-107); Glucose 89 mg/dL (83-110); Potassium 4.1 mmol/L (3.5-5.1); Sodium 140 mmol/L (136-145)
[2025-01-19] MEDS: Ezetimibe 10 MG TAB PO SCH (08:37)
[2025-01-19] MEDS: Mirtazapine 15 MG TAB PO SCH (08:37)
[2025-01-19] MEDS: Artificial Tear Ophth Sol 15 ML BOT EA EYE PRN (22:51)
[2025-01-20 05:02] LABS: Anion Gap 15 mmol/L (10-20); BUN (Urea Nitrogen) 38 mg/dL (8.4-25.7); Calc. Creatinine Clearance 31 mL/min (70-130); Calcium 8.7 mg/dL (7.8-10.44); Carbon Dioxide 23 mmol/L (23-31); Chloride 109 mmol/L (98-107); Glucose 100 mg/dL (83-110); Potassium 3.9 mmol/L (3.5-5.1); Sodium 143 mmol/L (136-145)
[2025-01-20] MEDS: Apixaban 2.5 MG TAB PO SCH (08:54)
[2025-01-20 12:07] VITALS: BP 104/65; TEMP 98
[2025-01-20] MEDS ORDERED: Apixaban 2.5 MG TAB PO SCH (21:00)
== END 2025-01-20 15:39 | DRG 281 ==
LOC: ERS 10:34 → 2NO 14:43
PROVIDERS: ADMIT Internal Medicine; ATTEND Family Medicine
DX: I48.91 Unspecified atrial fibrillation (principal); I13.0 Hypertensive heart and chronic kidney disease with heart failure and stage 1 through stage 4 chronic kidney disease, or unspecified chronic kidney disease; I21.A1 Myocardial infarction type 2; I50.32 Chronic diastolic (congestive) heart failure; I25.10 Atherosclerotic heart disease of native coronary artery without angina pectoris; I35.0 Nonrheumatic aortic (valve) stenosis; N18.30 Chronic kidney disease, stage 3 unspecified; I69.891 Dysphagia following other cerebrovascular disease; Z66 Do not resuscitate; Z79.899 Other long term (current) drug therapy; Z79.82 Long term (current) use of aspirin; E78.5 Hyperlipidemia, unspecified; K21.9 Gastro-esophageal reflux disease without esophagitis; F32.A Depression, unspecified; F03.90 Unspecified dementia, unspecified severity, without behavioral disturbance, psychotic disturbance, mood disturbance, and anxiety; I48.92 Unspecified atrial flutter; F41.9 Anxiety disorder, unspecified; Z90.49 Acquired absence of other specified parts of digestive tract; Z98.890 Other specified postprocedural states; Z95.1 Presence of aortocoronary bypass graft
CPT/HCPCS: 36415; 71045; 71275; 80048; 80053; 81001; 83735; 83880; 84484; 85025; 93005; 93306; 94760; 96372; J1650; Q9967